=== PATIENT | male | born 1930 | race Caucasian/White ===

== ENCOUNTER → 2016-06-26 | Outpatient (CLI) | payer MEDICARE ==
[~2016-06-26] MED LIST: AMBI5TAB PO; AMLO2.5T PO; ASPI81 PO; ASPI81TA5 PO; ATOR20TA42 PO; CLOP75 PO; CLOP75TA PO; FINA5TAB2 PO; GABA100C4 PO; LIPI20TA PO; LOSA25 PO; LOSA50TA PO; PROS5TAB2 PO; TAB-TAB PO
[2016-06-26 09:16] LABS: HEMATOCRIT 44.6 % (39.0-51.0); MEAN CORPUSCULAR HEMOGLOBIN 29.4 PG (27.0-34.0); MEAN CORPUSCULAR HGB CONC 33.4 % (32.0-36.0); PLATELET COUNT 222 TH/MM3 (150-450); RED BLOOD COUNT 5.07 MIL/MM3 (4.50-5.90); RED CELL DISTRIBUTION WIDTH 13.2 % (11.6-17.2); REVIEW FLAG FINAL; WHITE BLOOD COUNT 5.6 TH/MM3 (4.0-11.0)
[2016-06-26 09:22] LABS: BLOOD, URINE NEG (NEG); GLUCOSE,URINE NEG (NEG); KETONE, URINE NEG (NEG); MUCUS URINE FEW /lpf (OCC); NITRITE,URINE NEG (NEG); PH, URINE 6.5 (5.0-8.5); SQUAMOUS EPITHELIAL CELL URINE <1 /hpf (0-5); URINE COLOR LIGHT-YELLOW (YELLW/STRAW)
[2016-06-26 09:23] LABS: COMMENT (UR) CULT NOT INDICATED; CULTURE IF INDICATED CULT NOT INDICATED
[2016-06-26 09:29] LABS: BICARBONATE 24.6 MEQ/L (21.0-32.0); POTASSIUM 4.7 MEQ/L (3.5-5.1)
== END ==
LOC: PLAB 06:41
PROVIDERS: ATTEND Internal Medicine Nephrology
DX: N18.3 Chronic kidney disease, stage 3 (moderate) (principal); I10 Essential (primary) hypertension; R80.9 Proteinuria, unspecified; E87.5 Hyperkalemia; E55.9 Vitamin D deficiency, unspecified; N25.81 Secondary hyperparathyroidism of renal origin
CPT/HCPCS: 36415; 80069; 81001; 82306; 82570; 83970; 84156; 85027

== ENCOUNTER → 2016-07-24 | Outpatient (CLI) | payer MEDICARE ==
[2016-07-24 09:13] LABS: AUTOMATED NEUTROPHIL # 3.9 TH/MM3 (1.8-7.7); BASOPHIL # 0.1 TH/MM3 (0-0.2); BASOPHIL % 2.1 % (0.0-2.0); EOSINOPHIL # 0.4 TH/MM3 (0-0.4); EOSINOPHIL % 7.6 % (0.0-4.0); HEMATOCRIT 42.4 % (39.0-51.0); HEMO FLAGS DIFF FINAL; LYMPH % 16.1 % (9.0-44.0); MEAN CELL VOLUME 87.3 FL (80.0-100.0); MEAN CORPUSCULAR HEMOGLOBIN 29.7 PG (27.0-34.0); MONO % 9.3 % (0.0-8.0); NEUT % 64.9 % (16.0-70.0); PLATELET COUNT 218 TH/MM3 (150-450); RED BLOOD COUNT 4.86 MIL/MM3 (4.50-5.90); RED CELL DISTRIBUTION WIDTH 13.4 % (11.6-17.2); WHITE BLOOD COUNT 5.9 TH/MM3 (4.0-11.0)
[2016-07-24 10:18] LABS: ALKALINE PHOSPHATASE 110 U/L (45-117); ALT (GPT) 23 U/L (12-78); ANION GAP 8 MEQ/L (5-15); AST (GOT) 23 U/L (15-37); BICARBONATE 24.2 MEQ/L (21.0-32.0); BLOOD UREA NITROGEN 29 MG/DL (7-18); CHLORIDE 110 MEQ/L (98-107); GLOMERULAR FILTRATION RATE 33 ML/MIN (>89); GLUCOSE,FASTING 95 MG/DL (74-99); HDL CHOLESTEROL 43.3 MG/DL (40.0-60.0); LDL CHOLESTEROL 82 MG/DL (0-99); POTASSIUM 4.6 MEQ/L (3.5-5.1); SODIUM (NA) 142 MEQ/L (136-145); TOTAL BILIRUBIN ADULT 0.4 MG/DL (0.2-1.0)
[2016-07-24 11:44] LABS: HEMOGLOBIN A1a 0.8 %; HEMOGLOBIN A1b 1.6 %; HEMOGLOBIN Ao 85.1 %; HEMOGLOBIN LA1C 2.2 %; HEMOGLOBIN P3 4.3 %
== END ==
LOC: PLAB 06:43
PROVIDERS: ATTEND Family Medicine
DX: I25.10 Atherosclerotic heart disease of native coronary artery without angina pectoris (principal); N40.1 Benign prostatic hyperplasia with lower urinary tract symptoms; I12.9 Hypertensive chronic kidney disease with stage 1 through stage 4 chronic kidney disease, or unspecified chronic kidney disease; N18.3 Chronic kidney disease, stage 3 (moderate); H91.90 Unspecified hearing loss, unspecified ear; E78.5 Hyperlipidemia, unspecified; G47.00 Insomnia, unspecified; H81.09 Meniere's disease, unspecified ear
CPT/HCPCS: 36415; 80053; 80061; 83036; 84153; 84443; 85025

== ENCOUNTER → 2016-08-09 | Outpatient (CLI) | payer MEDICARE, OTHER ==
--- NOTE | 2016-08-23 10:13 | RSPPFT ---
DATE OF PROCEDURE: 08/09/16 COMMENTS: Spirometry with FVC of 4.0, FEV1 of 2.9, FEV1/FVC ratio at 72%. A positive but non-significant response to acutely inhaled bronchodilator. Total lung capacity is 106% of predicted. Diffusion capacity is normal. IMPRESSION: 1. Moderate airways obstruction. 2. Positive but non-significant response to acutely inhaled bronchodilator. 3. No evidence of airways restriction. 4. Normal diffusion capacity.
== END ==
LOC: HRSP 07:52
PROVIDERS: ATTEND Family Medicine
DX: R06.00 Dyspnea, unspecified (principal)
CPT/HCPCS: 94060; 94726; 94729

== ENCOUNTER 2016-10-03 11:31 | Day surgery (SDC) | payer MEDICARE ==
[~2016-10-03 11:31] MED LIST changes: -AMLO2.5T PO; -ASPI81TA5 PO; -CLOP75TA PO; -FINA5TAB2 PO; -GABA100C4 PO; -LIPI20TA PO; -LOSA50TA PO; +PROPOFOL 200 MG/20 ML AMP IV ONE
[2016-10-03] MEDS ORDERED: INSULIN HUMAN REGULAR 1,000 UNITS/10 ML VIAL SQ PRN (12:00)
[2016-10-03] MEDS ORDERED: SODIUM CHLORID 0.9% 500 ML IV PRN (12:00)
[2016-10-03] MEDS ORDERED: POVIDONE IODINE 5% (ANTISEPSIS KIT) 4 APPLICATIONS EACH NARE PRN (12:00)
[2016-10-03] MEDS ORDERED: METOPROLOL TARTRATE 25 MG TAB PO PRN (12:00)
[2016-10-03] MEDS ORDERED: LACTATED RINGER'S 1000 ML IV PRN (12:00)
[2016-10-03] MEDS ORDERED: CHLORHEXIDINE GLUCONATE 2 % 1 PACK (2 CLOTHS) TOPICAL PRN (12:00)
[2016-10-03] MEDS ORDERED: GABA100C4 PO (12:16)
[2016-10-03] MEDS ORDERED: CLOP75TA PO (12:16)
[2016-10-03] MEDS ORDERED: LIPI20TA PO (12:16)
[2016-10-03] MEDS ORDERED: FINA5TAB2 PO (12:16)
[2016-10-03] MEDS ORDERED: LOSA50TA PO (12:16)
[2016-10-03] MEDS ORDERED: AMLO2.5T PO (12:16)
[2016-10-03] MEDS ORDERED: ASPI81TA5 PO (12:16)
--- NOTE | 2016-10-03 14:37 | PD.CARD ---
Cardiology Procedure Note Procedure Name: ZAYDA Procedure Date: October 03, 2016 Procedure Note: ZAYDA SHOWED 3 TO 4+, MITRAL REGURGITATION Claudio Isabel MD October 03, 2016 14:36
--- NOTE | 2016-10-04 05:58 | CF ---
cc: CLAUDIO ISABEL M.D. DATE PROCEDURE PERFORMED Transesophageal echo. INDICATION Mitral regurgitation. CONSENT A full, informed consent was obtained prior to the procedure. The risks of , bleeding, perforation, aspiration, foreseen and unforeseen complications were reviewed. The patient fully appeared to understand the risks. PROCEDURE The patient was sterilely prepped and draped in the usual manner. A full ZAYDA was performed. At the end of the procedure, the ZAYDA probe was removed and the patient allowed to wake up from sedation. The patient was sedated by the Anesthesia Department. FINDINGS The interatrial septum was intact. The interventricular septum was intact. The mitral valve showed evidence of mitral valve prolapse with parts of the mitral valve prolapsing. There was evidence of moderate to severe (3-4+) eccentric mitral regurgitation up to the pulmonary veins. There was evidence of mild tricuspid regurgitation. The aortic valve moved normally. LV function was normal. The aorta was visualized to 40 cm. CONCLUSIONS 1. Significant mitral valve regurgitation, 3-4+, which could account for the patient's symptoms. 2. Potentially a repairable valve. Claudio Isabel MD, CP,[facility] /2:30 PM /5:47 AM
--- NOTE | 2016-10-04 18:28 | EKG ---
Date Performed: 10/03/2016 Time Performed: 12:08:46 PTAGE: 85 years EKG: Sinus rhythm with borderline 1st degree A-V block. Inferior infarct - age undetermined Abnormal ECG Compared to p rior tracing no significant change PREVIOUS TRACING : 12/03/2015 07.23 DOCTOR: Shivam Mckenna Interpretating Date/Time 10/04/2016 18:25:23
== END 2016-10-03 15:18 | disposition home or self-care (01) ==
LOC: HDOC 11:31 → HDIC 11:31 → HDOC 15:18
PROVIDERS: ATTEND Internal Medicine Cardiovascular Disease
DX: I34.0 Nonrheumatic mitral (valve) insufficiency (principal)
CPT/HCPCS: 93005; 93312; 93320; 93325

== ENCOUNTER → 2016-12-26 | Outpatient (CLI) | payer MEDICARE ==
[~2016-12-26] MED LIST changes: -AMBI5TAB PO; +AMLO2.5T PO; -ASPI81 PO; +ASPI81TA5 PO; -ATOR20TA42 PO; -CLOP75 PO; +CLOP75TA PO; +FINA5TAB2 PO; +GABA100C4 PO; +LIPI20TA PO; -LOSA25 PO; +LOSA50TA PO; -PROPOFOL 200 MG/20 ML AMP IV ONE; -PROS5TAB2 PO; -TAB-TAB PO
[2016-12-26 09:13] LABS: AUTOMATED NEUTROPHIL # 3.8 TH/MM3 (1.8-7.7); BASOPHIL % 0.9 % (0.0-2.0); EOSINOPHIL # 0.2 TH/MM3 (0-0.4); EOSINOPHIL % 4.8 % (0.0-4.0); HEMATOCRIT 43.8 % (39.0-51.0); HEMO FLAGS DIFF FINAL; LYMPH % 15.4 % (9.0-44.0); LYMPHOCYTE # 0.8 TH/MM3 (1.0-4.8); MEAN CELL VOLUME 90.9 FL (80.0-100.0); MEAN CORPUSCULAR HEMOGLOBIN 29.8 PG (27.0-34.0); MEAN CORPUSCULAR HGB CONC 32.8 % (32.0-36.0); NEUT % 73.9 % (16.0-70.0); PLATELET COUNT 214 TH/MM3 (150-450); RED BLOOD COUNT 4.82 MIL/MM3 (4.50-5.90); RED CELL DISTRIBUTION WIDTH 13.6 % (11.6-17.2); WHITE BLOOD COUNT 5.1 TH/MM3 (4.0-11.0)
[2016-12-26 09:27] LABS: BLOOD, URINE NEG (NEG); GLUCOSE,URINE NEG (NEG); HYALINE CAST, URINE 2 /lpf (RARE); KETONE, URINE NEG (NEG); NITRITE,URINE NEG (NEG); SQUAMOUS EPITHELIAL CELL URINE <1 /hpf (0-5); URINE COLOR LIGHT-YELLOW (YELLW/STRAW)
[2016-12-26 09:28] LABS: COMMENT (UR) CULT NOT INDICATED; CULTURE IF INDICATED CULT NOT INDICATED
[2016-12-26 09:47] LABS: POTASSIUM 4.5 MEQ/L (3.5-5.1)
== END ==
LOC: PLAB 06:40
PROVIDERS: ATTEND Internal Medicine Nephrology
DX: E55.9 Vitamin D deficiency, unspecified (principal); N18.3 Chronic kidney disease, stage 3 (moderate)
CPT/HCPCS: 36415; 80069; 81001; 82306; 82570; 83970; 84156; 85025

== ENCOUNTER → 2017-02-15 | Outpatient (CLI) | payer MEDICARE ==
[2017-02-15 09:29] LABS: AUTOMATED NEUTROPHIL # 4.5 TH/MM3 (1.8-7.7); BASOPHIL # 0.1 TH/MM3 (0-0.2); BASOPHIL % 1.3 % (0.0-2.0); EOSINOPHIL # 0.4 TH/MM3 (0-0.4); EOSINOPHIL % 5.8 % (0.0-4.0); HEMATOCRIT 43.9 % (39.0-51.0); HEMO FLAGS DIFF FINAL; LYMPH % 17.4 % (9.0-44.0); LYMPHOCYTE # 1.2 TH/MM3 (1.0-4.8); MEAN CELL VOLUME 90.8 FL (80.0-100.0); MEAN CORPUSCULAR HEMOGLOBIN 30.3 PG (27.0-34.0); MEAN CORPUSCULAR HGB CONC 33.4 % (32.0-36.0); MONO % 8.1 % (0.0-8.0); NEUT % 67.4 % (16.0-70.0); PLATELET COUNT 225 TH/MM3 (150-450); RED BLOOD COUNT 4.84 MIL/MM3 (4.50-5.90); RED CELL DISTRIBUTION WIDTH 13.3 % (11.6-17.2); WHITE BLOOD COUNT 6.7 TH/MM3 (4.0-11.0)
[2017-02-15 09:52] LABS: ANION GAP 7 MEQ/L (5-15); AST (GOT) 21 U/L (15-37); BICARBONATE 24.7 MEQ/L (21.0-32.0); BLOOD UREA NITROGEN 36 MG/DL (7-18); CHLORIDE 108 MEQ/L (98-107); GLOMERULAR FILTRATION RATE 32 ML/MIN (>89); POTASSIUM 5.2 MEQ/L (3.5-5.1); SODIUM (NA) 140 MEQ/L (136-145)
[2017-02-15 09:53] LABS: GLUCOSE,FASTING 93 MG/DL (74-99)
[2017-02-15 10:07] LABS: ALKALINE PHOSPHATASE 91 U/L (45-117); ALT (GPT) 24 U/L (12-78); HDL CHOLESTEROL 43.9 MG/DL (40.0-60.0); LDL CHOLESTEROL 72 MG/DL (0-99); TOTAL BILIRUBIN ADULT 0.5 MG/DL (0.2-1.0)
== END ==
LOC: PLAB 06:46
PROVIDERS: ATTEND Family Medicine
DX: I12.9 Hypertensive chronic kidney disease with stage 1 through stage 4 chronic kidney disease, or unspecified chronic kidney disease (principal); N18.3 Chronic kidney disease, stage 3 (moderate); E78.5 Hyperlipidemia, unspecified; R53.83 Other fatigue; G62.9 Polyneuropathy, unspecified
CPT/HCPCS: 36415; 80053; 80061; 84443; 85025

== ENCOUNTER → 2017-04-15 | Outpatient (CLI) | payer MEDICARE ==
[~2017-04-15] MED LIST changes: -ASPI81TA5 PO; +ECASA81 PO
[2017-04-15 10:07] LABS: BICARBONATE 26.6 MEQ/L (21.0-32.0); POTASSIUM 4.2 MEQ/L (3.5-5.1)
== END ==
LOC: PLAB 06:37
PROVIDERS: ATTEND Internal Medicine Cardiovascular Disease
DX: I42.9 Cardiomyopathy, unspecified (principal); I48.91 Unspecified atrial fibrillation; I34.0 Nonrheumatic mitral (valve) insufficiency; I10 Essential (primary) hypertension
CPT/HCPCS: 36415; 80048

== ENCOUNTER → 2017-05-09 | Outpatient (CLI) | payer MEDICARE ==
[2017-05-09 09:30] LABS: AUTOMATED NEUTROPHIL # 5.3 TH/MM3 (1.8-7.7); BASOPHIL # 0.2 TH/MM3 (0-0.2); EOSINOPHIL # 1.1 TH/MM3 (0-0.4); EOSINOPHIL % 12.6 % (0.0-4.0); HEMATOCRIT 33.9 % (39.0-51.0); HEMO FLAGS DIFF FINAL; LYMPH % 12.1 % (9.0-44.0); MEAN CELL VOLUME 77.8 FL (80.0-100.0); MEAN CORPUSCULAR HEMOGLOBIN 24.2 PG (27.0-34.0); MEAN CORPUSCULAR HGB CONC 31.1 % (32.0-36.0); MONO % 10.3 % (0.0-8.0); PLATELET COUNT 327 TH/MM3 (150-450); RED BLOOD COUNT 4.36 MIL/MM3 (4.50-5.90); RED CELL DISTRIBUTION WIDTH 17.3 % (11.6-17.2); WHITE BLOOD COUNT 8.3 TH/MM3 (4.0-11.0)
[2017-05-09 09:51] LABS: ANION GAP 8 MEQ/L (5-15); BICARBONATE 23.3 MEQ/L (21.0-32.0); BLOOD UREA NITROGEN 49 MG/DL (7-18); CHLORIDE 108 MEQ/L (98-107); GLOMERULAR FILTRATION RATE 26 ML/MIN (>89); GLUCOSE,FASTING 93 MG/DL (74-99); POTASSIUM 4.8 MEQ/L (3.5-5.1); SODIUM (NA) 139 MEQ/L (136-145)
[2017-05-09 09:56] LABS: FERRITIN 27 NG/ML (26-388); TRANSFERRIN IRON PROFILE 285 MG/DL (200-360)
[2017-05-09 10:00] LABS: BLOOD, URINE NEG (NEG); COMMENT (UR) CULT NOT INDICATED; CULTURE IF INDICATED CULT NOT INDICATED; GLUCOSE,URINE NEG (NEG); KETONE, URINE NEG (NEG); NITRITE,URINE NEG (NEG); PH, URINE 6.5 (5.0-8.5); SQUAMOUS EPITHELIAL CELL URINE <1 /hpf (0-5); URINE COLOR LIGHT-YELLOW (YELLW/STRAW)
== END ==
LOC: PLAB 06:47
PROVIDERS: ATTEND Physician Assistant
DX: E55.9 Vitamin D deficiency, unspecified (principal); N18.3 Chronic kidney disease, stage 3 (moderate); D63.1 Anemia in chronic kidney disease
CPT/HCPCS: 36415; 80069; 81001; 82306; 82570; 82728; 83540; 83550; 83970; 84156; 85025

== ENCOUNTER 2017-05-31 09:16 | Observation (INO) | payer MEDICARE ==
[~2017-05-31] VITALS: Ht 190.5 cm; Wt 70.0 kg
[2017-05-31 09:20] VITALS: BP 130/71; PULSE 90; RESP 18; TEMP 97.5; O2SAT 98
[2017-05-31 09:28] VITALS: BP 130/71; PULSE 79; RESP 18; TEMP 97.5; O2SAT 98
[2017-05-31] MEDS ORDERED: SODIUM CHLORIDE 0.9% FLUSH 10 ML FLUSH IVF PRN (10:00)
[2017-05-31 10:20] VITALS: O2SAT 98
--- NOTE | 2017-05-31 10:26 | RADRPT ---
EXAM DATE/TIME: 05/31/2017 10:04 [facility] COMPARISON: CHEST SINGLE AP, November 26, 2015, 8:05. INDICATIONS : Syncope. MEDICAL HISTORY : Hypertension. SURGICAL HISTORY : Mitral valve replaced. ENCOUNTER: Initial ACUITY: 1 day PAIN SCORE: 0/10 LOCATION: Bilateral chest FINDINGS: A single view of the chest demonstrates the lungs to be symmetrically aerated without evidence of mas s, infiltrate or effusion. The cardiomediastinal contours are unremarkable. Osseous structures are intact. The patient is status post median sternotomy. There are overlying electrocardiogram leads. CONCLUSION: No acute disease. Taiwo Serrato MD on May 31, 2017 at 10:24 Board Certified Radiologist. This report was verified electronically.
[2017-05-31 10:35] LABS: AUTOMATED NEUTROPHIL # 5.8 TH/MM3 (1.8-7.7); BASOPHIL # 0.1 TH/MM3 (0-0.2); BASOPHIL % 1.3 % (0.0-2.0); EOSINOPHIL # 0.5 TH/MM3 (0-0.4); EOSINOPHIL % 6.3 % (0.0-4.0); HEMATOCRIT 35.6 % (39.0-51.0); LYMPH % 8.7 % (9.0-44.0); LYMPHOCYTE # 0.7 TH/MM3 (1.0-4.8); MEAN CELL VOLUME 77.8 FL (80.0-100.0); MEAN CORPUSCULAR HGB CONC 30.9 % (32.0-36.0); MEAN PLATELET VOLUME 8.1 FL (7.0-11.0); MONO % 8.3 % (0.0-8.0); MONOCYTE # 0.6 TH/MM3 (0-0.9); NEUT % 75.4 % (16.0-70.0); PLATELET COUNT 273 TH/MM3 (150-450); RED BLOOD COUNT 4.58 MIL/MM3 (4.50-5.90); RED CELL DISTRIBUTION WIDTH 20.5 % (11.6-17.2); WHITE BLOOD COUNT 7.7 TH/MM3 (4.0-11.0)
[2017-05-31 10:43] LABS: INTERNATIONAL NORMALIZED RATIO 1.8 RATIO; PROTHROMBIN TIME - PATIENT 18.1 SEC (9.8-11.6)
[2017-05-31] MEDS ORDERED: CARV3.12 PO (10:47)
[2017-05-31] MEDS ORDERED: ISOS30TA3 PO (10:47)
[2017-05-31] MEDS ORDERED: WARF-58 PO (10:47)
[2017-05-31] MEDS ORDERED: GABA300C5 PO (10:47)
[2017-05-31 10:53] LABS: ALBUMIN 2.5 GM/DL (3.4-5.0); ALT (GPT) 19 U/L (12-78); AST (GOT) 21 U/L (15-37); BICARBONATE 21.6 MEQ/L (21.0-32.0); BLOOD UREA NITROGEN 46 MG/DL (7-18); CALCIUM 8.3 MG/DL (8.5-10.1); CHLORIDE 107 MEQ/L (98-107); CREATININE 2.11 MG/DL (0.60-1.30); GLOMERULAR FILTRATION RATE 30 ML/MIN (>89); GLUCOSE,RANDOM 144 MG/DL (74-106); MAGNESIUM 2.2 MG/DL (1.5-2.5); SODIUM (NA) 138 MEQ/L (136-145)
[2017-05-31 10:57] LABS: ALKALINE PHOSPHATASE 116 U/L (45-117); TOTAL BILIRUBIN ADULT 0.5 MG/DL (0.2-1.0); TROPONIN I 0.03 NG/ML (0.02-0.05)
--- NOTE | 2017-05-31 12:53 | PD ---
HPI Chief Complaint: Syncope/Near-Syncope Time Seen by Provider: 09:27 Travel History International Travel<30 days: No Contact w/Intl Traveler<30days: No Traveled to known affect area: No History of Present Illness HPI 86-year-old male arrives to the ER after a syncope event this morning. The reports the patient lost consciousness for 5 minutes. Just prior the patient had participated with physical therapy. Patient lost control of bladder function with hypotensive BP measurements on scene according to EMS. They also reported patient's systolic blood pressure drop significantly with the orthostatics performed on scene. In the ER the patient reports feeling much better. He had no chest pain shortness of breath nausea vomiting or fever. He reports compliance with coumadin /2 2/2 valve replacement. PFSH Past Medical History Hx Anticoagulant Therapy: Yes (WARFARIN) Arthritis: Yes Asthma: No Autoimmune Disease: No Blood Disorders: No Anxiety: No Depression: No Heart Rhythm Problems: No Cancer: Yes (BASAL CELL CA OF NECK) Cardiac Catheterization: Yes Cardiovascular Problems: Yes (CABG, MV REPLACED) High Cholesterol: Yes Chemotherapy: No Chest Pain: No Congestive Heart Failure: No COPD: No Cerebrovascular Accident: No Coronary Artery Disease: Yes Diabetes: No Diminished Hearing: Yes Endocrine: No Gastrointestinal Disorders: No Glaucoma: Yes (SUSPICIOUS PRIOR TO LENS IMPLANTS PLACED) Genitourinary: Yes (KIDNEY DISEASE, BPH) Headaches: No Hypertension: Yes Immune Disorder: No Kidney Stones: No Musculoskeletal: Yes (RIGHT KNEE) Neurologic: Yes (NEUROPATHY) Psychiatric: No Reproductive: No Respiratory: No Immunizations Current: Yes Migraines: No Myocardial Infarction: Yes Radiation Therapy: No Renal Failure: Yes (STAGE 3 RENAL INSUFFICIENCY) Seizures: No Sickle Cell Disease: No Sleep Apnea: No Thyroid Disease: No Tetanus Vaccination: Unknown Influenza Vaccination: Yes ?: Not Past Surgical History Abdominal Surgery: No AICD: No Cardiac Surgery: No Coronary Stent: Yes Ear Surgery: Yes (TUBE PLACE LEFT EAR 2000/REMOVED) Endocrine Surgery: No Eye Surgery: Yes (BILAT CATARACT WITH NIURKA INMPLANTS 2005) Genitourinary Surgery: No Gynecologic Surgery: No Insulin Pump: No Joint Replacement: No Oral Surgery: No Pacemaker: No Thoracic Surgery: No Other Surgery: Yes (MULTIPLE SKIN CANCER REMOVALS ) Social History Alcohol Use: Yes (OCCASIOJNAL BEER) Tobacco Use: No Substance Use: No Allergies-Medications (Allergen,Severity, Reaction): Coded Allergies: duloxetine (Unverified Allergy, Severe, Confusion, 01/15/17) Reported Meds & Prescriptions Reported Meds & Active Scripts Active Reported Gabapentin 300 Mg Cap 300 Mg PO HS Warfarin 3 Mg Tab 3 Mg PO DAILY Isosorbide Mononitrate ER (Isosorbide Mononitrate) 30 Mg Melonie 30 Mg PO DAILY Carvedilol 3.125 Mg Tab 3.125 Mg PO BID Losartan (Losartan Potassium) 50 Mg Tab 50 Mg PO BID Gabapentin 100 Mg Cap 100 Mg PO AC BREAKFAST Finasteride 5 Mg Tab 5 Mg PO DAILY Do not crush. Lipitor (Atorvastatin Calcium) 20 Mg Tab 20 Mg PO DAILY Aspirin DR (Aspirin) 81 Mg Tabdr 81 Mg PO DAILY Review of Systems Except as stated in HPI: all other systems reviewed are Neg Physical Exam Narrative GENERAL: A-year-old male well-nourished well-developed no acute distress SKIN: Focused skin assessment warm/dry. HEAD: Atraumatic. Normocephalic. EYES: Pupils equal and round. No scleral icterus. No injection or drainage. ENT: No nasal bleeding or discharge. Mucous membranes pink and moist. NECK: Trachea midline. No JVD. CARDIOVASCULAR: Regular rate and rhythm. No murmur appreciated. RESPIRATORY: No accessory muscle use. Clear to auscultation. Breath sounds equal bilaterally. GASTROINTESTINAL: Abdomen soft, non-tender, nondistended. Hepatic and splenic margins not palpable. MUSCULOSKELETAL: No obvious deformities. No clubbing. No cyanosis. No edema. NEUROLOGICAL: Awake and alert. No obvious cranial nerve deficits. Motor grossly within normal limits. Normal speech. PSYCHIATRIC: Appropriate mood and affect; insight and judgment normal. Data Data Last Documented VS Vital Signs Date Time Temp Pulse Resp B/P (MAP) Pulse Ox O2 Delivery O2 Flow Rate FiO2 05/31/17 10:20 98 Room Air 05/31/17 09:28 78 18 05/31/17 09:28 97.5 Vital signs reviewed Orders Orders Electrocardiogram (05/31/17 09:57) Complete Blood Count With Diff (05/31/17 09:57) Comprehensive Metabolic Panel (05/31/17 09:57) Magnesium (Mg) (05/31/17 09:57) B-Type Natriuretic Peptide (05/31/17 09:57) Ckmb (Isoenzyme) Profile (05/31/17 09:57) Troponin I (05/31/17 09:57) Act Partial Throm Time (Ptt) (05/31/17 09:57) Prothrombin Time / Inr (Pt) (05/31/17 09:57) Chest, Single Ap (05/31/17 09:57) Blood Glucose (05/31/17 09:57) Ecg Monitoring (05/31/17 09:57) Iv Access Insert/Monitor (05/31/17 09:57) Oximetry (05/31/17 09:57) Sodium Chloride 0.9% Flush (Ns Flush) (05/31/17 10:00) Ventilation & Perfusion Scan (05/31/17 ) Admit Order (Ed Use Only) (05/31/17 ) Upholstery Technician / Telemetry PETER.Q8H (05/31/17 13:09) Vital Signs (Adult) Q4H (05/31/17 13:09) Diet Npo (05/31/17 Lunch) Activity Bed Rest (05/31/17 13:09) Labs Laboratory Tests Test 05/31/17 10:12 White Blood Count 7.7 TH/MM3 Red Blood Count 4.58 MIL/MM3 Hemoglobin 11.0 GM/DL Hematocrit 35.6 % Mean Corpuscular Volume 77.8 FL Mean Corpuscular Hemoglobin 24.0 PG Mean Corpuscular Hemoglobin Concent 30.9 % Red Cell Distribution Width 20.5 % Platelet Count 273 TH/MM3 Mean Platelet Volume 8.1 FL Neutrophils (%) (Auto) 75.4 % Lymphocytes (%) (Auto) 8.7 % Monocytes (%) (Auto) 8.3 % Eosinophils (%) (Auto) 6.3 % Basophils (%) (Auto) 1.3 % Neutrophils # (Auto) 5.8 TH/MM3 Lymphocytes # (Auto) 0.7 TH/MM3 Monocytes # (Auto) 0.6 TH/MM3 Eosinophils # (Auto) 0.5 TH/MM3 Basophils # (Auto) 0.1 TH/MM3 CBC Comment DIFF FINAL Differential Comment Prothrombin Time 18.1 SEC Prothromb Time International Ratio 1.8 RATIO Activated Partial Thromboplast Time 30.3 SEC Blood Urea Nitrogen 46 MG/DL Creatinine 2.11 MG/DL Random Glucose 144 MG/DL Total Protein 6.0 GM/DL Albumin 2.5 GM/DL Calcium Level 8.3 MG/DL Magnesium Level 2.2 MG/DL Alkaline Phosphatase 116 U/L Aspartate Amino Transf (AST/SGOT) 21 U/L Alanine Aminotransferase (ALT/SGPT) 19 U/L Total Bilirubin 0.5 MG/DL Sodium Level 138 MEQ/L Potassium Level 4.7 MEQ/L Chloride Level 107 MEQ/L Carbon Dioxide Level 21.6 MEQ/L Anion Gap 9 MEQ/L Estimat Glomerular Filtration Rate 30 ML/MIN Total Creatine Kinase 59 U/L Troponin I 0.03 NG/ML B-Type Natriuretic Peptide 887 PG/ML MDM Medical Decision Making Medical Screen Exam Complete: Yes Emergency Medical Condition: Yes Medical Record Reviewed: Yes Differential Diagnosis PE, CHF, metabolic disarray Narrative Course CBC & BMP Diagram 05/31/17 10:12 Total Protein 6.0 L, Albumin 2.5 L, Calcium Level 8.3 L, Magnesium Level 2.2, Alkaline Phosphatase 116, Aspartate Amino Transf (AST/SGOT) 21, Alanine Aminotransferase (ALT/SGPT) 19, Total Bilirubin 0.5 The BNP is 887 Troponin is 0.03 EKG shows a sinus rhythm with a rate of 79, nerves first-degree AV block, no ventricular heart strain INR is 1.8 Pt will be kept here for monitoring for a VQ scan and for diuresis. [facility] is hemodynamically [facility]w Dr Wesley Diagnosis Primary Impression: Syncope and collapse Additional Impressions: Elevated brain natriuretic peptide (BNP) level Urinary incontinence Qualified Codes: R32 - Unspecified urinary incontinence Admitting Information Admitting Physician Requests: Observation Fredis Paris MD May 31, 2017 12:53
--- NOTE | 2017-05-31 14:21 | EKG ---
Date Performed: 05/31/2017 Time Performed: 09:28:23 PTAGE: 86 years EKG: Sinus rhythm WITH FIRST DEGREE AV BLOCK SEPTAL MYOCARDIAL INFARCTION MODERATE T-WAVE ABNORMALITY, CONSIDER LATERA L ISCHEMIA ABNORMAL ECG PREVIOUS TRACING 10/03/16 Lateral changes are new, consider ischemia. DOCTOR: Jack Luis Interpretating Date/Time 05/31/2017 14:21:14
[2017-05-31] MEDS: SODIUM CHLOR 0.9% 1000 ML INJ 1,000 ML IV SCH (14:37)
[2017-05-31] MEDS ORDERED: SODIUM CHLORIDE 0.9% FLUSH 10 ML FLUSH IV FLUSH PRN (14:45)
[2017-05-31] MEDS ORDERED: MAGNESIUM HYDROXIDE SUSP 30 ML CUP PO PRN (14:45)
[2017-05-31] MEDS ORDERED: NALOXONE HCL 0.4 MG/ML AMP IV PUSH PRN (14:45)
[2017-05-31] MEDS ORDERED: ONDANSETRON HCL 4 MG/2 ML VIAL IVP PRN (14:45)
--- NOTE | 2017-05-31 14:46 | RADRPT ---
EXAM DATE/TIME: 05/31/2017 13:54 [facility] COMPARISON: CHEST SINGLE AP, May 31, 2017, 10:04. INDICATIONS : Dyspnea. DOSE: 8.1 mCi Tc99m MAA IV 2.7 mCi Tc99m DTPA aerosol MEDICAL HISTORY : Hypertension. Myocardial infarction. Renal insufficiency, chronic. SURGICAL HISTORY : CABG Coronary artery stent. ENCOUNTER: Initial ACUITY: 1 day PAIN SCALE: 0/10 LOCATION: Chest. TECHNIQUE: Following five minutes of tidal breathing of DTPA aerosol, planar images of the lungs were performed in eight projections. The patient was then injected with MAA, and eight-view perfusion scan was perf ormed. FINDINGS: There is a heterogeneous pattern of aerosol delivery to both lungs, with a lesser degree of ventilati on to the upper lobes than lower lobes. No focal ventilatory defects are seen. The perfusion lung scan demonstrates a homogenous pattern of uptake in both lungs. No segmental or s ubsegmental defects are seen. Chest x-ray demonstrates the lungs to be clear. CONCLUSION: Low probability pulmonary embolism. Yadiel Machuca MD on May 31, 2017 at 14:44 Board Certified Radiologist. This report was verified electronically.
--- NOTE | 2017-05-31 16:01 | HHI.HP ---
[facility] Service [facility] Primary Care Physician Олег Bray MD Admission Diagnosis Syncope; CHF Diagnoses: Chief Complaint: syncope Travel History International Travel<30 Days: No Contact w/Intl Traveler <30 Da: No Traveled to Known Affected Are: No History of Present Illness 86-year-old male with history of HTN, HLD, CAD s/p CABG, severe MR s/p bovine mitral valve replacement, anticoagulated on Coumadin, CKD stage III, BPH, Mni re's disease, neuropathy, presents after an acute syncopal episode earlier today. The patient reports that he recently had CABG with bypass of LAD and mitral valve replacement done at [facility] on 03/01/17. He states he has been doing fairly well except feeling fatigued and winded at times. A few weeks ago he was told he was iron deficient, started on iron supplementation by his brick burner head, now having black stools. He has been performing physical therapy with home health care. Today his physical therapist visited him around 8 AM and started his session. Around 8:20 AM the patient was standing during an exercise when he had profuse diaphoresis, started to feel lightheaded, sat down in a chair, and that is last thing he remembers. The was in another room when the therapist yelled to call 911. The states that the patient was out for at least five minutes. He had bladder incontinence and secretions from the mouth. The next thing the patient remembers is [facility] arriving. He states they did check his blood pressure sitting down and standing up, and he remembers his standing systolic blood pressure in the 70s. The reports he was AAO 4 upon his awakening. Denies noticing any facial droop, slurred speech, or unilateral weakness. The patient denies ever having any palpitations or chest pain. He states he is "winded" and short of breath at baseline even prior to surgery. He denies any recent fevers/chills, congestion, cough, nausea/vomiting, diarrhea, or urinary complaints. He denies any recent changes to medications other than the addition of iron supplementation 2 weeks ago. The patient's hydraulic strainer operator is Dr. Isabel. The patient did just complete a 3 week event monitor to evaluate for afib however he has not yet received the results. The patient was told that he had an episode of afib after his surgery, otherwise denies any other history of arrhythmia. The patient has no other medical complaints at this time. Currently the patient feels better, denies any lightheadedness, but does feel fatigued. He wants to go home as soon as possible. Review of Systems Except as stated in HPI: all other systems reviewed are Neg Past Family Social History Past Medical History HTN HLD CAD s/p CABG severe MR s/p bovine mitral valve replacement anticoagulated on Coumadin CKD stage III BPH Mnire's disease peripheral neuropathy arthritis basal cell carcinoma s/p multiple resections Past Surgical History Cardiac catheterizations TEEs CABG x1 vessel (LAD) Bovine Mitral valve replacement Tympanostomy placement and removal Bilateral cataract removal and lens implant Reported Medications Gabapentin 300 Mg Cap 300 Mg PO HS Warfarin 3 Mg Tab 3 Mg PO DAILY Isosorbide Mononitrate ER (Isosorbide Mononitrate) 30 Mg Melonie 30 Mg PO DAILY Carvedilol 3.125 Mg Tab 3.125 Mg PO BID Losartan (Losartan Potassium) 50 Mg Tab 50 Mg PO BID Gabapentin 100 Mg Cap 100 Mg PO AC BREAKFAST Finasteride 5 Mg Tab 5 Mg PO DAILY Do not crush. Lipitor (Atorvastatin Calcium) 20 Mg Tab 20 Mg PO DAILY Aspirin DR (Aspirin) 81 Mg Tabdr 81 Mg PO DAILY Allergies: Coded Allergies: duloxetine (Unverified Allergy, Severe, Confusion, 01/15/17) Active Ordered Medications Current Medications Medications (Trade) Dose Ordered Sig/Maliha Route Start Time Stop Time Status Last Admin Sodium Chloride 1,000 ml @ 83 mls/hr Q12H3M IV 05/31/17 14:37 (NS Flush) 2 ml UNSCH PRN IV FLUSH 05/31/17 14:45 (NS Flush) 2 ml BID IV FLUSH 05/31/17 21:00 (Zofran Inj) 4 mg Q6H PRN IVP 05/31/17 14:45 (Narcan Inj) 0.4 mg UNSCH PRN IV PUSH 05/31/17 14:45 (Milk Of Magnesia Liq) 30 ml Q12H PRN PO 05/31/17 14:45 Family History Mother with possible heart problems later in age, age 92 Father around age 65, unknown medical history, heavy drinker Denies any significant family history of cancer, stroke, or diabetes Social History Remote cigar and pipe use, quit 50+ years ago Rare alcohol use, occasional beer Denies any illicit drug use Physical Exam Vital Signs Vital Signs Date Time Temp Pulse Resp B/P (MAP) Pulse Ox O2 Delivery O2 Flow Rate FiO2 05/31/17 14:12 05/31/17 10:20 98 Room Air 05/31/17 09:28 78 18 98 Room Air 05/31/17 09:28 97.5 79 18 130/71 (90) 98 Room Air 05/31/17 09:20 97.5 90 18 130/71 (90) 98 Physical Exam GENERAL: Well-nourished, well-developed elderly male patient in [facility]. SKIN: Warm and dry. No rash. HEAD: Normocephalic. Atraumatic. EYES: Pupils equal and round. No scleral icterus. No injection or drainage. ENT: No nasal bleeding or discharge. Mucous membranes pink and moist. Right ear with hearing aid. NECK: Supple. Trachea midline. CARDIOVASCULAR: Regular rate and rhythm. S1, S2 noted. No murmur appreciated. Midline sternotomy scar well-healing. RESPIRATORY: No accessory muscle use. Clear to auscultation. Breath sounds equal bilaterally. GASTROINTESTINAL: Abdomen soft, non-tender, nondistended. Normoactive bowel sounds x4. MUSCULOSKELETAL: No obvious deformities. Extremities without clubbing, cyanosis , or edema. NEUROLOGICAL: Awake and alert. No obvious cranial nerve deficits. Motor grossly within normal limits. 5/5 muscle strength in bilateral upper and lower extremities. Normal speech. PSYCHIATRIC: Appropriate mood and affect; insight and judgment normal. Laboratory Laboratory Tests Test 05/31/17 10:12 White Blood Count 7.7 Red Blood Count 4.58 Hemoglobin 11.0 Hematocrit 35.6 Mean Corpuscular Volume 77.8 Mean Corpuscular Hemoglobin 24.0 Mean Corpuscular Hemoglobin Concent 30.9 Red Cell Distribution Width 20.5 Platelet Count 273 Mean Platelet Volume 8.1 Neutrophils (%) (Auto) 75.4 Lymphocytes (%) (Auto) 8.7 Monocytes (%) (Auto) 8.3 Eosinophils (%) (Auto) 6.3 Basophils (%) (Auto) 1.3 Neutrophils # (Auto) 5.8 Lymphocytes # (Auto) 0.7 Monocytes # (Auto) 0.6 Eosinophils # (Auto) 0.5 Basophils # (Auto) 0.1 CBC Comment DIFF FINAL Differential Comment Prothrombin Time 18.1 Prothromb Time International Ratio 1.8 Activated Partial Thromboplast Time 30.3 Blood Urea Nitrogen 46 Creatinine 2.11 Random Glucose 144 Total Protein 6.0 Albumin 2.5 Calcium Level 8.3 Magnesium Level 2.2 Alkaline Phosphatase 116 Aspartate Amino Transf (AST/SGOT) 21 Alanine Aminotransferase (ALT/SGPT) 19 Total Bilirubin 0.5 Sodium Level 138 Potassium Level 4.7 Chloride Level 107 Carbon Dioxide Level 21.6 Anion Gap 9 Estimat Glomerular Filtration Rate 30 Total Creatine Kinase 59 Troponin I 0.03 B-Type Natriuretic Peptide 887 Result Diagram: 05/31/17 1012 05/31/17 1012 Imaging Last Impressions Chest X-Ray 05/31/17 0957 Signed Impressions: Service Date/Time: Wednesday, May 31, 2017 10:04 - CONCLUSION: No acute disease. Taiwo Serrato MD Lung Scan-V Nuclear Medicine 05/31/17 0000 Signed Impressions: Service Date/Time: Wednesday, May 31, 2017 13:54 - CONCLUSION: Low probability pulmonary embolism. Yadiel Machuca MD Caplaceyi VTE Risk Assessment Caprini VTE Risk Assessment: Mod/High Risk (score >= 2) Caprini Risk Assessment Model Point Value = 1 Point Value = 2 Point Value = 3 Point Value = 5 Age 41-60 Minor surgery BMI > 25 kg/m2 Swollen legs Varicose veins or History of unexplained or recurrent spontaneous Oral contraceptives or hormone replacement Sepsis (< 1 month) Serious lung disease, including pneumonia (< 1 month) Abnormal pulmonary function Acute myocardial infarction Congestive heart failure (< 1 month) History of inflammatory bowel disease Medical patient at bed rest Age 61-74 Arthroscopic surgery Major open surgery (> 45 min) Laparoscopic surgery (> 45 min) Malignancy Confined to bed (> 72 hours) Immobilizing plaster cast Central venous access Age >= 75 History of VTE Family history of VTE Factor V Leiden Prothrombin [id number] Lupus anticoagulant Anticardiolipin antibodies Elevated serum homocysteine Heparin-induced thrombocytopenia Other congenital or acquired thrombophilia Stroke (< 1 month) Elective arthroplasty Hip, pelvis, or leg fracture Acute spinal cord injury (< 1 month) Prophylaxis Regimen Total Risk Factor Score Risk Level Prophylaxis Regimen 0-1 Low Early ambulation 2 Moderate Order ONE of the following: *Sequential Compression Device (SCD) *Heparin 5000 units SQ BID 3-4 Higher Order ONE of the following medications: *Heparin 5000 units SQ TID *Enoxaparin/Lovenox 40 mg SQ daily (WT < 150 kg, CrCl > 30 mL/min) *Enoxaparin/Lovenox 30 mg SQ daily (WT < 150 kg, CrCl > 10-29 mL/min) *Enoxaparin/Lovenox 30 mg SQ BID (WT < 150 kg, CrCl > 30 mL/min) AND/OR *Sequential Compression Device (SCD) 5 or more Highest Order ONE of the following medications: *Heparin 5000 units SQ TID (Preferred with Epidurals) *Enoxaparin/Lovenox 40 mg SQ daily (WT < 150 kg, CrCl > 30 mL/min) *Enoxaparin/Lovenox 30 mg SQ daily (WT < 150 kg, CrCl > 10-29 mL/min) *Enoxaparin/Lovenox 30 mg SQ BID (WT < 150 kg, CrCl > 30 mL/min) AND *Sequential Compression Device (SCD) Assessment and Plan Problem List: (1) Syncope and collapse ICD Code: R55 - Syncope and collapse Status: Acute (2) Elevated brain natriuretic peptide (BNP) level ICD Code: R79.89 - Other specified abnormal findings of blood chemistry Status: Acute Assessment and Plan 86-year-old male with history of HTN, HLD, CAD s/p CABG, severe MR s/p bovine mitral valve replacement, anticoagulated on Coumadin, CKD stage III, BPH, Mni re's disease, neuropathy, presents after an acute syncopal episode earlier today. Syncope: unclear etiology, suspect vasovagal vs orthostatic hypotension, possible arrhythmia, rule out ACS. [facility] reported standing SBP in 70s upon arrival. CXR images reviewed, unremarkable. VQ scan with low probability for PE. -Hold patient's BP meds for now -Obtain records of recent 3 week event monitor done with Dr. Isabel -Rule out ACS with serial cardiac enzymes/EKG although no complaints of chest pain -Monitor on telemetry -Check orthostatics -Check carotid U/S -Give IVF hydration -Apply janes hose, [employer] on slow transitions -Consult PT -Consider consulting patient's hydraulic strainer operator Dr. Isabel if symptoms persist Elevated BNP: BNP 887. No signs of fluid overload on exam and CXR clear. Suspect secondary to recent surgery. Patient reports last EF 60%. -Records reviewed, last ZAYDA 10/03/16 with normal LV function -outpatient f/up with hydraulic strainer operator Dr. Isabel CAD s/p CABG: chronic -continue patient's aspirin; holding patient's coreg, losartan, and imdur with syncope as above. -monitor on telemetry -check serial cardiac enzymes and EKGs S/p Mitral Valve Replacement, Anticoagulated on Coumadin: chronic -INR 1.8 -continue patient's coumadin Hypertension: with orthostatic hypotension upon arrival -holding patient's losartan, coreg, and imdur for now -will plan to restart losartan if BP improves -monitor BP, adjust antihypertensives as needed CKD, stage III: chronic, appears around baseline -avoid nephrotoxins -outpatient f/up with brick burner head Hyperlipidemia: chronic -continue patient's statin BPH: chronic -continue patient's Proscar DVT Prophylaxis: on Coumadin Discussed Condition With Patient, Patient's , Dr. Wesley, RN Attending Statement S: 86 year old male admitted with syncope O: Patient has returned to baseline Physical exam: Neck -supple with no carotid bruits Heart -no murmurs, normal sinus rhythm Lungs - clear to auscultation bilaterally A/P: Syncope - I agree with the plan listed above. Etiology is most suspect to be arrythmia vs. VasoVagal. Orthostatic hypotension may also be present, but due to duration seems less likely. Proceed with work up as listed above. Alessia Karimi PA-C May 31, 2017 16:01 Fredis Wesley MD May 31, 2017 16:35
[2017-05-31 16:27] VITALS: BP 180/103; PULSE 87; RESP 18; TEMP 97.1; O2SAT 99
--- NOTE | 2017-05-31 17:22 | RADRPT ---
EXAM DATE/TIME: 05/31/2017 16:44 [place] COMPARISON: No previous studies available for comparison. INDICATIONS : Syncope. MEDICAL HISTORY : Hypercholesterolemia. Hypertension. Benign prostatic hyperplasia, (BPH) Myocardial infarction. Mcdonald ry artery disease. Renal failure. Arthritis. Carcinoma, basal cell. SURGICAL HISTORY : CABG. Bilateral cataract surgery. Tube placement, left ear. Mitral valve replacement. Cardiac catheterization. Coronary stent. Right knee arthroscopy. Multiple skin cancer removals. ENCOUNTER: Initial ACUITY: 1 day PAIN SCORE: 0/10 LOCATION: Bilateral neck PEAK SYSTOLIC VELOCITIES (cm/sec): ICA/CCA RATIO: Right: 1.2 Left: 1.0 ICA: Right: 62.8 Left: 65.8 CCA: Right: 53.7 Left: 62.9 ECA: Right: 53.7 Left: 53.7 VERTEBRAL: Right: 40.2 antegrade Left: 26.3 antegrade Elevated flow velocities and ICA/CCA ratios have been found to correlate with increased degrees of vessel stenosis, calculated as percentage of diameter relative to a normal segment of distal ICA/CCA FINDINGS: RIGHT CAROTID: No significant stenosis is visualized. The waveforms are within normal limits. LEFT CAROTID: Prominent amount of plaque in the carotid bulb and proximal internal carotid artery with shadowing cho ggesting calcification. There is no significant widening of the velocity spectrum in the internal car otid artery. VERTEBRAL ARTERIES: Antegrade flow is seen in both vertebral arteries. CONCLUSION: 1. Normal hemodynamic profile on the right side. 2. Prominent shadowing calcified plaque in the carotid bulb and proximal internal carotid artery with hemodynamic parameters characteristic of less than 50% stenosis. Yadiel Machuca MD on May 31, 2017 at 17:18 Board Certified Radiologist. This report was verified electronically.
[2017-05-31] MEDS: LOSARTAN 50 MG TAB PO PRN (17:41)
[2017-05-31] MEDS: WARFARIN SOD 3 MG TAB PO SCH (17:41)
[2017-05-31 20:00] VITALS: PULSE 84
[2017-05-31] MEDS ORDERED: CARVEDILOL 3.125 MG TAB PO SCH (21:00)
[2017-05-31 21:13] VITALS: BP_SYST 180; BP_SYST 184; BP_SYST 186; BP_DIAS 89; BP_DIAS 96; BP_DIAS 98; PULSE 84; RESP 18; TEMP 97.6; O2SAT 97
[2017-05-31] MEDS: GABAPENTIN 300 MG CAP PO SCH (22:29)
[2017-05-31] MEDS: SODIUM CHLORIDE 0.9% FLUSH 10 ML FLUSH IV FLUSH SCH (22:30)
[2017-05-31] MEDS ORDERED: cloNIDine HCL 0.1 MG TAB PO ONE (23:45)
[2017-05-31] MEDS: TEMAZEPAM 15 MG CAP PO PRN (23:54)
[2017-06-01] VITALS (8 sets, daily range): BP systolic 125–192; BP diastolic 67–106; PULSE 73–92; RESP 18–20; TEMP 97.2–98.3; O2SAT 96–99
[2017-06-01] MEDS: SODIUM CHLOR 0.9% 1000 ML INJ 1,000 ML IV SCH ×3 (02:40→18:23)
[2017-06-01] MEDS: GABAPENTIN 100 MG CAP PO SCH (06:19)
[2017-06-01 08:13] LABS: AUTOMATED NEUTROPHIL # 5.2 TH/MM3 (1.8-7.7); BASOPHIL # 0.1 TH/MM3 (0-0.2); BASOPHIL % 1.2 % (0.0-2.0); EOSINOPHIL # 0.5 TH/MM3 (0-0.4); EOSINOPHIL % 6.8 % (0.0-4.0); HEMATOCRIT 34.9 % (39.0-51.0); HEMOGLOBIN 11.2 GM/DL (13.0-17.0); LYMPH % 12.1 % (9.0-44.0); LYMPHOCYTE # 0.9 TH/MM3 (1.0-4.8); MEAN CELL VOLUME 76.9 FL (80.0-100.0); MEAN CORPUSCULAR HEMOGLOBIN 24.7 PG (27.0-34.0); MEAN CORPUSCULAR HGB CONC 32.1 % (32.0-36.0); MEAN PLATELET VOLUME 7.9 FL (7.0-11.0); MONO % 10.3 % (0.0-8.0); MONOCYTE # 0.8 TH/MM3 (0-0.9); NEUT % 69.6 % (16.0-70.0); PLATELET COUNT 255 TH/MM3 (150-450); RED BLOOD COUNT 4.54 MIL/MM3 (4.50-5.90); RED CELL DISTRIBUTION WIDTH 20.9 % (11.6-17.2); WHITE BLOOD COUNT 7.4 TH/MM3 (4.0-11.0)
[2017-06-01] MEDS: ASPIRIN EC 81 MG TABEC PO SCH (08:36)
[2017-06-01] MEDS: SODIUM CHLORIDE 0.9% FLUSH 10 ML FLUSH IV FLUSH SCH ×2 (08:36→20:28)
[2017-06-01] MEDS: FINASTERIDE 5 MG TAB PO SCH (08:36)
[2017-06-01] MEDS: ATORVASTATIN 20 MG TAB PO SCH (08:36)
[2017-06-01 08:53] LABS: ALBUMIN 2.4 GM/DL (3.4-5.0); AST (GOT) 16 U/L (15-37); BICARBONATE 22.3 MEQ/L (21.0-32.0); BLOOD UREA NITROGEN 47 MG/DL (7-18); CALCIUM 8.5 MG/DL (8.5-10.1); CHLORIDE 110 MEQ/L (98-107); CREATININE 1.98 MG/DL (0.60-1.30); GLOMERULAR FILTRATION RATE 32 ML/MIN (>89); GLUCOSE,RANDOM 91 MG/DL (74-106); SODIUM (NA) 141 MEQ/L (136-145)
[2017-06-01 08:56] LABS: ALKALINE PHOSPHATASE 120 U/L (45-117); ALT (GPT) 19 U/L (12-78); TOTAL BILIRUBIN ADULT 0.5 MG/DL (0.2-1.0); TOTAL PROTEIN 5.8 GM/DL (6.4-8.2)
--- NOTE | 2017-06-01 10:09 | HHI.PR ---
Subjective Remarks Follow up syncope. Patient has no complaints at this time. States that he wants to go home. Denies chest pain, dyspnea. Ambulated with assistance this morning and had no lightheadedness/dizziness. States that he is being very careful to stand up slowly. Objective Vitals Vital Signs Date Time Temp Pulse Resp B/P (MAP) Pulse Ox O2 Delivery O2 Flow Rate FiO2 06/01/17 08:00 139/71 (93) 06/01/17 08:00 145/78 (100) 06/01/17 08:00 98.3 78 18 140/80 (100) 97 06/01/17 05:16 97.6 73 18 153/87 (109) 96 142/81 (101) 125/67 (86) 06/01/17 01:33 84 19 135/86 (102) 06/01/17 01:24 88 06/01/17 01:21 97.2 92 20 192/106 (134) 98 05/31/17 21:13 97.6 84 18 184/96 (125) 97 186/98 (127) 180/89 (119) 05/31/17 20:00 84 05/31/17 16:27 97.1 87 18 180/103 (128) 99 05/31/17 14:12 05/31/17 10:20 98 Room Air I/O 05/31/17 05/31/17 05/31/17 06/01/17 06/01/17 06/01/17 07:00 15:00 23:00 07:00 15:00 23:00 Intake Total 1000 ml Balance 1000 ml Intake IV Total 1000 ml Result Diagram: 06/01/17 0729 06/01/17 0729 Imaging Last Impressions Chest X-Ray 05/31/17 0957 Signed Impressions: Service Date/Time: Wednesday, May 31, 2017 10:04 - CONCLUSION: No acute disease. Taiwo Serrato MD Lung Scan-V Nuclear Medicine 05/31/17 0000 Signed Impressions: Service Date/Time: Wednesday, May 31, 2017 13:54 - CONCLUSION: Low probability pulmonary embolism. Yadiel Machuca MD Carotid Artery Ultrasound 05/31/17 0000 Signed Impressions: Service Date/Time: Wednesday, May 31, 2017 16:44 - CONCLUSION: 1. Normal hemodynamic profile on the right side. 2. Prominent shadowing calcified plaque in the carotid bulb and proximal internal carotid artery with hemodynamic parameters characteristic of less than 50%% stenosis. Yadiel Machuca MD Objective Remarks General: Elderly male in no acute distress. Sitting up in a chair. Heart: Regular rate and rhythm. No murmur. Lungs: Clear to auscultation bilaterally. No wheezes, rales, or rhonchi. Breathing is nonlabored. Abdomen: Soft, nontender, nondistended. Extremities: No lower extremity edema. Psych: Alert and oriented. Procedures None Urinary Catheter: No Vascular Central Line Catheter: No A/P Problem List: (1) Syncope and collapse ICD Code: R55 - Syncope and collapse Status: Acute (2) Elevated brain natriuretic peptide (BNP) level ICD Code: R79.89 - Other specified abnormal findings of blood chemistry Status: Acute (3) Hypertension ICD Code: I10 - Essential (primary) hypertension (4) Chronic kidney disease, stage 3 ICD Code: N18.3 - Chronic kidney disease, stage 3 (moderate) (5) Hyperlipidemia ICD Code: E78.5 - Hyperlipidemia, unspecified (6) BPH (benign prostatic hyperplasia) ICD Code: N40.0 - Benign prostatic hyperplasia without lower urinary tract symptoms (7) Coronary artery disease ICD Code: I25.10 - Atherosclerotic heart disease of [place] coronary artery without angina pectoris Assessment and Plan 1. Syncope: Uncertain etiology. Likely vasovagal versus orthostatic hypotension. Arrhythmia is possible. Patient reportedly had standing systolic blood pressure in the 70s per paramedics. Telemetry reviewed. Echocardiogram ordered. Consult placed to patient's rocket motor mechanic, Dr. Isabel. 2. Elevated BNP: Patient does not have any clinical signs of fluid overload. This is likely secondary to recent surgery. 3. Coronary artery disease: Chronic, asymptomatic. Patient has history of CABG. Continue aspirin. Coreg, losartan, on hold secondary to syncope. 4. Status post mitral valve replacement: Continue Coumadin. 5. Hypertension: Patient had orthostatic hypotension on arrival. Losartan, Coreg , Imdur on hold. Restart losartan when blood pressure improves. 6. Chronic kidney disease stage III: Creatinine is approximately at the patient' s baseline. Avoid nephrotoxins. Follow-up as outpatient with nephrology. 7. Hyperlipidemia: Continue statin. 8. BPH: Continue Proscar. 9. DVT prophylaxis: Coumadin. Discharge Planning The patient is requesting discharge home today. Possible discharge home pending echocardiogram and cardiology clearance. Rl Lloyd MD Jun 01, 2017 10:09
[2017-06-01 12:32] LABS: INTERNATIONAL NORMALIZED RATIO 1.7 RATIO
--- NOTE | 2017-06-01 14:25 | ECHRPT ---
Indication: EF assessment of CHF CONCLUSIONS Mildly dilated left ventricle. Mild concentric left ventricular hypertrophy. The left ventricular systolic function is severely reduced with an estimated ejection fraction in th e range of 30-35%. Global hypokinesis. The left atrial size is [id number] dilated. The right atrial size is rqxz-jl-mmsnhdrnch dilated. Mitral valve mean gradient is 9 mmHg. There is moderate stenosis of the mitral valve Bioprosthesis, mean gradient 9 mmHg. Aortic valve sclerosis is present. Mild aortic valve regurgitation. There is mild tricuspid valve regurgitation. The estimated pulmonary arterial pressure is 32.7 mmHg. Moderate pulmonary valve regurgitation. BP: 153 / 87 HR: Rhythm: Sinus, Atrial fibrillation MEASUREMENTS (Male / Female) Normal Values Technical Quality:Fair 2D ECHO LV Diastolic Diameter PLAX 5.6 cm 4.2 - 5.9 / 3.9 - 5.3 cm LV Systolic Diameter PLAX 4.8 cm IVS Diastolic Thickness 1.0 cm 0.6 - 1.0 / 0.6 - 0.9 cm LVPW Diastolic Thickness 1.0 cm 0.6 - 1.0 / 0.6 - 0.9 cm LV Relative Wall Thickness 0.4 RV Internal Dim ED PLAX 2.9 cm LVOT Diameter 1.8 cm Aortic Root Diameter 3.2 cm LA Systolic Diameter LX 3.1 cm 3.0 - 4.0 / 2.7 - 3.8 cm M-MODE AV Cusp Separation MM 1.8 cm DOPPLER AV Peak Velocity 97.9 cm/s AV Peak Gradient 3.8 mmHg AV Mean Gradient 2.0 mmHg AV Velocity Time Integral 17.4 cm LVOT Peak Velocity 73.1 cm/s LVOT Peak Gradient 2.1 mmHg LVOT Velocity Time Integral 13.9 cm AV Area Cont Eq vti 2.0 cm AV Area Cont Eq pk 1.9 cm MV Peak Velocity 223.8 cm/s MV Peak Gradient 20.0 mmHg MV Mean Velocity 128.0 cm/s MV Mean Gradient 9.0 mmHg MV Area PHT 3.0 cm Mitral E Point Velocity 175.0 cm/s LV E' Lateral Velocity 7.3 cm/s Mitral E to LV E' Lateral Ratio 23.9 LV E' Septal Velocity 4.8 cm/s Mitral E to LV E' Septal Ratio 36.6 TR Peak Velocity 238.0 cm/s TR Peak Gradient 22.7 mmHg Right Atrial Pressure 10.0 mmHg Pulmonary Artery Systolic Pressu 32.7 mmHg Right Ventricular Systolic Press 32.7 mmHg PV Peak Velocity 52.6 cm/s PV Peak Gradient 1.1 mmHg FINDINGS LEFT VENTRICLE Mildly dilated left ventricle. Mild concentric left ventricular hypertrophy. The left ventricular systolic function is severely reduced with an estimated ejection fraction in th e range of 30-35%. There is global left ventricular dysfunction. RIGHT VENTRICLE Normal right ventricular size and systolic function. LEFT ATRIUM The left atrial size is cwbw-xm-tcsffuejze dilated. RIGHT ATRIUM The right atrial size is gktm-sj-xwwsazfzju dilated. ATRIAL SEPTUM Normal atrial septal thickness without atrial level shunting by limited color doppler interrogation. AORTA The aortic root and proximal ascending aorta are normal in size on limited imaging. MITRAL VALVE Mitral valve mean gradient is 9 mmHg. There is moderate stenosis of the mitral valve Bioprosthesis, mean gradient 9 mmHg. AORTIC VALVE Aortic valve sclerosis is present. Mild aortic valve regurgitation. TRICUSPID VALVE There is mild tricuspid valve regurgitation. The estimated pulmonary arterial pressure is 32.7 mmHg. PULMONARY VALVE Moderate pulmonary valve regurgitation. VESSELS The inferior vena cava is normal in size. PERICARDIUM No pericardial effusion. Jack Luis MD (Electronically Signed) Final Date:01 June 2017 14:24
--- NOTE | 2017-06-01 15:41 | HHI.DCPOC ---
Discharge Care Plan Diagnosis: (1) Chronic kidney disease, stage 3 (2) BPH (benign prostatic hyperplasia) (3) Hypertension (4) Hyperlipidemia (5) Coronary artery disease (6) Syncope and collapse (7) Elevated brain natriuretic peptide (BNP) level Goals to Promote Your Health * To prevent worsening of your condition and complications * To maintain your health at the optimal level Directions to Meet Your Goals Take your medications as prescribed Follow your dietary instruction Follow activity as directed Keep your appointments as scheduled Take your immunizations and boosters as scheduled If your symptoms worsen call your PCP, if no PCP go to Urgent Care Center or Emergency Room Smoking is Dangerous to Your Health. Avoid second hand smoke Call the 24-hour hour crisis hotline for domestic abuse at Rl Lloyd MD Jun 01, 2017 15:41
[2017-06-01] MEDS: WARFARIN SOD 3 MG TAB PO SCH (15:54)
--- NOTE | 2017-06-01 17:30 | MB ---
cc: PENNIE KRISHNAMURTHY M.D., B[place] G. DO DATE OF CONSULTATION: 06/01/2017. IMPRESSIONS: 1. Syncope likely related to orthostatic hypotension, rule out ventricular tachyarrhythmia, rule out seizure disorder but would seem unlikely. 2. 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 3. Hypertension. 4. Chronic warfarin therapy. 5. Questionable history of atrial fibrillation. 6. Chronic kidney disease. 7. Prostatism. 8. Peripheral neuropathy. 9. Meniere's disease. 10. History of multiple basal cell carcinomas. RECOMMENDATIONS: 1. Discontinue diuretic. 2. I would decrease the dose of Losartan to 50 milligrams once per day. 3. I would increase Coreg to 6.25 twice a day. 4. Maintain warfarin therapy with INR goal 2 to 3. 5. Check an 8:00 a.m. cortisol level. 6. Cautious rehydration. I do not have access to the patient's cardiac catheterization report regarding his pulmonary hemodynamics. CLINICAL DATA: Mr. Ortez is an 86-year-old male who was admitted to the hospital with syncope. Apparently he was doing physical therapy when he passed out. His states he was out for at least five minutes. He apparently was quite sweaty before this happened. He had incontinence of bladder and apparently was foaming at the mouth. There was no postictal depression. He apparently had mitral regurgitation and underwent mitral valve replacement and single-vessel coronary bypass grafting surgery. He had perioperative atrial fibrillation but has otherwise done well. PAST SURGICAL HISTORY: His other surgical history includes: 1. Cardiac catheterization. 2. Coronary bypass grafting surgery. 3. Tympanoplasty with re-do. 4. Bilateral cataracts. MEDICATIONS ON ADMISSION: 1. Gabapentin 300 daily. 2. Warfarin 3 milligrams daily. 3. Isosorbide mononitrate 30 daily. 4. Carvedilol 3.125 twice a day. 5. Losartan 50 twice a day. 6. Gabapentin 100 daily. 7. Finasteride 5 daily. 8. Lipitor 20 daily. 9. Aspirin 81 daily. 10. The patient tells me that he was also on Bumex 1 milligram daily, although this is not reflected in the medical record. He has had no bleeding problems. He does have black stools but was started on iron recently by his diamond expert, presumably for anemia. His hematocrit at the time of admission to the hospital was 36%. He has had no recent chest pain. He has no history of seizures. He has no history of pericardial disease. He has no history of diabetes but random blood sugars are noted to be 144 on admission. He has a history of dyslipidemia. He has no previous history of seizure or stroke or TIA. There is no history of asthma or bronchitis or emphysema. No history of peptic ulcer disease. There is no history of liver disease or thyroid disease. There is a history of chronic renal failure and prostatism. He has had no chest pain. He has had no lower extremity edema. He has had no PND or orthopnea. PHYSICAL EXAMINATION: GENERAL: The physical exam at this time demonstrates an alert oriented male in no apparent distress. VITAL SIGNS: His most recent blood pressure is 192/106. His nurse tells me that orthostatics were performed earlier and systolic pressure dropped from 156 to 128. HEAD, EYES, EARS, NOSE, THROAT: Anicteric sclerae. NECK: Jugular venous pressures are normal. There are no bruits. LUNGS: He has clear lung shore. CARDIAC: Cardiac exam demonstrates a regular rate and rhythm with a third heart sound noted. There is some arrhythmia noted during the exam. ABDOMEN: Abdomen soft and nontender. EXTREMITIES: Free of cyanosis, clubbing, edema, normal pulses. IMAGING STUDIES: Single view chest x-ray unremarkable. LABORATORY DATA: Admitting lytes 138, 4.7, 107, 22 with a BUN of 46, creatinine of 2.1, GFR 30. Normal transaminases. Albumin 2.5. BNP 887. Platelet count 273,000, white cell count 7700. EKGS: A 12-lead electrocardiogram demonstrates a sinus rhythm with first-degree AV block, septal Q-waves and poor R-wave progression, nonspecific S-T-T changes. DISCUSSION: This is an 86-year-old male about a month post mitral valve replacement and single-vessel coronary bypass grafting surgery admitted to the hospital with true syncope. He has positive orthostatic blood pressures. Since being monitored in the hospital so far he has had no reported atrial fibrillation. RECOMMENDATIONS: As noted above. Cross Sickinger, DO BS/TASNEEM /3:02 PM /5:03 PM
[2017-06-01] MEDS: GABAPENTIN 300 MG CAP PO SCH (20:27)
[2017-06-01] MEDS: TEMAZEPAM 15 MG CAP PO PRN (20:27)
[2017-06-02] VITALS (10 sets, daily range): BP systolic 107–208; BP diastolic 71–117; PULSE 67–91; RESP 17–20; TEMP 97–98.6; O2SAT 95–100
[2017-06-02] MEDS: GABAPENTIN 100 MG CAP PO SCH (06:23)
[2017-06-02] MEDS: SODIUM CHLORIDE 0.9% FLUSH 10 ML FLUSH IV FLUSH SCH ×2 (08:06→21:00)
[2017-06-02] MEDS: FINASTERIDE 5 MG TAB PO SCH (08:07)
[2017-06-02] MEDS: ASPIRIN EC 81 MG TABEC PO SCH (08:07)
[2017-06-02] MEDS: ATORVASTATIN 20 MG TAB PO SCH (08:07)
[2017-06-02 08:43] LABS: INTERNATIONAL NORMALIZED RATIO 1.6 RATIO; PROTHROMBIN TIME - PATIENT 16.6 SEC (9.8-11.6)
[2017-06-02 08:46] LABS: AUTOMATED NEUTROPHIL # 5.2 TH/MM3 (1.8-7.7); BASOPHIL # 0.1 TH/MM3 (0-0.2); BASOPHIL % 1.4 % (0.0-2.0); EOSINOPHIL # 0.6 TH/MM3 (0-0.4); EOSINOPHIL % 8.4 % (0.0-4.0); HEMATOCRIT 37.9 % (39.0-51.0); HEMOGLOBIN 11.9 GM/DL (13.0-17.0); LYMPH % 12.7 % (9.0-44.0); MEAN CORPUSCULAR HEMOGLOBIN 24.8 PG (27.0-34.0); MEAN CORPUSCULAR HGB CONC 31.4 % (32.0-36.0); MEAN PLATELET VOLUME 8.1 FL (7.0-11.0); MONO % 9.5 % (0.0-8.0); MONOCYTE # 0.7 TH/MM3 (0-0.9); PLATELET COUNT 333 TH/MM3 (150-450); RED BLOOD COUNT 4.79 MIL/MM3 (4.50-5.90); WHITE BLOOD COUNT 7.6 TH/MM3 (4.0-11.0)
[2017-06-02 09:04] LABS: ALBUMIN 2.4 GM/DL (3.4-5.0); AST (GOT) 21 U/L (15-37); BICARBONATE 21.8 MEQ/L (21.0-32.0); BLOOD UREA NITROGEN 42 MG/DL (7-18); CALCIUM 8.4 MG/DL (8.5-10.1); CHLORIDE 111 MEQ/L (98-107); CREATININE 1.89 MG/DL (0.60-1.30); GLOMERULAR FILTRATION RATE 34 ML/MIN (>89); GLUCOSE,RANDOM 82 MG/DL (74-106); SODIUM (NA) 140 MEQ/L (136-145)
[2017-06-02 09:09] LABS: ALKALINE PHOSPHATASE 123 U/L (45-117); ALT (GPT) 19 U/L (12-78); TOTAL BILIRUBIN ADULT 0.4 MG/DL (0.2-1.0); TOTAL PROTEIN 5.9 GM/DL (6.4-8.2)
--- NOTE | 2017-06-02 11:13 | HHI.PR ---
Subjective Remarks Follow up syncope. Patient has no complaints at this time. Denies chest pain, dyspnea, lightheadedness, dizziness. Ambulating without difficulty. Wants to go home. Objective Vitals Vital Signs Date Time Temp Pulse Resp B/P (MAP) Pulse Ox O2 Delivery O2 Flow Rate FiO2 06/02/17 08:00 97.8 88 18 175/99 (124) 100 06/02/17 04:28 75 06/02/17 04:00 97.0 67 20 107/71 (83) 95 06/02/17 00:00 98.6 73 18 130/80 (97) 98 06/01/17 20:00 98.3 86 18 138/83 (101) 98 06/01/17 16:00 97.6 89 18 175/96 (122) 99 06/01/17 12:00 128/77 (94) 06/01/17 12:00 145/70 (95) 06/01/17 12:00 97.7 78 18 156/81 (106) 97 I/O 06/01/17 06/01/17 06/01/17 06/02/17 06/02/17 06/02/17 07:00 15:00 23:00 07:00 15:00 23:00 Intake Total 1000 ml 1720 ml Output Total 650 ml 575 ml Balance 1000 ml 1070 ml -575 ml Intake Oral 720 ml IV Total 1000 ml 1000 ml Output Urine Total 650 ml 575 ml # Bowel Movements 0 Result Diagram: 06/02/17 0708 06/02/17 0708 Imaging Last Impressions Chest X-Ray 05/31/17 0957 Signed Impressions: Service Date/Time: Wednesday, May 31, 2017 10:04 - CONCLUSION: No acute disease. Taiwo Serrato MD Lung Scan-VQ Nuclear Medicine 05/31/17 0000 Signed Impressions: Service Date/Time: Wednesday, May 31, 2017 13:54 - CONCLUSION: Low probability pulmonary embolism. Yadiel Machuca MD Carotid Artery Ultrasound 05/31/17 0000 Signed Impressions: Service Date/Time: Wednesday, May 31, 2017 16:44 - CONCLUSION: 1. Normal hemodynamic profile on the right side. 2. Prominent shadowing calcified plaque in the carotid bulb and proximal internal carotid artery with hemodynamic parameters characteristic of less than 50%% stenosis. Yadiel Machuca MD Objective Remarks General: Elderly male in no acute distress. Sitting up in a chair. Heart: Regular rate and rhythm. No murmur. Lungs: Clear to auscultation bilaterally. No wheezes, rales, or rhonchi. Breathing is nonlabored. Abdomen: Soft, nontender, nondistended. Extremities: No lower extremity edema. Psych: Alert and oriented. Procedures None Urinary Catheter: No Vascular Central Line Catheter: No A/P Problem List: (1) Syncope and collapse ICD Code: R55 - Syncope and collapse Status: Acute (2) Elevated brain natriuretic peptide (BNP) level ICD Code: R79.89 - Other specified abnormal findings of blood chemistry Status: Acute (3) Hypertension ICD Code: I10 - Essential (primary) hypertension (4) Chronic kidney disease, stage 3 ICD Code: N18.3 - Chronic kidney disease, stage 3 (moderate) (5) Hyperlipidemia ICD Code: E78.5 - Hyperlipidemia, unspecified (6) BPH (benign prostatic hyperplasia) ICD Code: N40.0 - Benign prostatic hyperplasia without lower urinary tract symptoms (7) Coronary artery disease ICD Code: I25.10 - Atherosclerotic heart disease of [place] coronary artery without angina pectoris Assessment and Plan 1. Syncope: Uncertain etiology. Likely vasovagal versus orthostatic hypotension. Arrhythmia is possible. Patient reportedly had standing systolic blood pressure in the 70s per paramedics. Telemetry reviewed. Echocardiogram shows EF 30%. No prior echo report available, but patient reports EF ~50% a year ago. Appreciate cardiology recommendations. 2. Elevated BNP: Patient does not have any clinical signs of fluid overload. This is likely secondary to recent surgery. 3. Coronary artery disease: Chronic, asymptomatic. Patient has history of CABG. Continue aspirin. Coreg, losartan, on hold secondary to syncope. 4. Status post mitral valve replacement: Echocardiogram shows moderate stenosis of the mitral valve bioprosthesis. 5. Hypertension: Patient had orthostatic hypotension on arrival. Losartan, Coreg , Imdur on hold. Restart losartan when blood pressure improves. 6. Chronic kidney disease stage III: Creatinine is approximately at the patient' s baseline. Avoid nephrotoxins. Follow-up as outpatient with nephrology. 7. Hyperlipidemia: Continue statin. 8. BPH: Continue Proscar. 9. Atrial fibrillation: Rate controlled. Continue coumadin. Appreciate cardiology recommendations. 10. DVT prophylaxis: Coumadin. Discharge Planning The patient wants to go home today. Possible discharge home pending cardiology clearance. Rl Lloyd MD Jun 02, 2017 11:13
--- NOTE | 2017-06-02 12:47 | EKG ---
Date Performed: 05/31/2017 Time Performed: 16:21:18 PTAGE: 86 years EKG: Sinus rhythm WITH FIRST DEGREE AV BLOCK NONSPECIFIC T-WAVE ABNORMALITY Compared to prior tracing no significant c trevone ABNORMAL ECG PREVIOUS TRACING : 05/31/2017 09.28 DOCTOR: Jewel Ellis Interpretating Date/Time 06/02/2017 12:45:52
[2017-06-02] MEDS: SODIUM CHLOR 0.9% 1000 ML INJ 1,000 ML IV SCH (15:23)
[2017-06-02] MEDS: LOSARTAN 50 MG TAB PO PRN (15:24)
[2017-06-02] MEDS ORDERED: WARFARIN SOD 1 MG TAB PO SCH (16:00)
[2017-06-02] MEDS ORDERED: WARFARIN SOD 4 MG TAB PO SCH (16:00)
[2017-06-02] MEDS ORDERED: WARFARIN SOD 3 MG TAB PO ONE (16:00)
[2017-06-02] MEDS: GABAPENTIN 300 MG CAP PO SCH (21:13)
[2017-06-02] MEDS ORDERED: METOPROLOL TARTRATE 50 MG TAB PO ONE (21:45)
[2017-06-02] MEDS: TEMAZEPAM 15 MG CAP PO PRN (22:05)
[2017-06-03 01:18] VITALS: BP 132/73; PULSE 76; RESP 18; TEMP 98.5; O2SAT 97
[2017-06-03 06:29] VITALS: BP 166/82; PULSE 71; RESP 19; TEMP 98.1; O2SAT 97
[2017-06-03] MEDS: GABAPENTIN 100 MG CAP PO SCH (07:11)
[2017-06-03 08:00] LABS: INTERNATIONAL NORMALIZED RATIO 1.7 RATIO; PROTHROMBIN TIME - PATIENT 16.7 SEC (9.8-11.6)
[2017-06-03 08:14] LABS: BICARBONATE 23.6 MEQ/L (21.0-32.0); CALCIUM 8.3 MG/DL (8.5-10.1); CREATININE 1.86 MG/DL (0.60-1.30)
[2017-06-03 08:39] VITALS: BP 159/102; PULSE 73; RESP 18; TEMP 98.1; O2SAT 96
[2017-06-03] MEDS: ATORVASTATIN 20 MG TAB PO SCH (08:42)
[2017-06-03] MEDS: FINASTERIDE 5 MG TAB PO SCH (08:42)
[2017-06-03] MEDS: ASPIRIN EC 81 MG TABEC PO SCH (08:42)
[2017-06-03] MEDS: SODIUM CHLORIDE 0.9% FLUSH 10 ML FLUSH IV FLUSH SCH (09:00)
[2017-06-03 09:45] VITALS: PULSE 82
[2017-06-03] MEDS ORDERED: CARV6.25 PO (11:28)
[2017-06-03] MEDS ORDERED: LOSA50TA PO (11:28)
--- NOTE | 2017-06-03 11:37 | HHI.DS ---
Discharge Summary Admission Date May 31, 2017 at 13:10 Discharge Date: Jun 03, 2017 Admitting Diagnosis Syncope; CHF (1) Syncope and collapse ICD Code: R55 - Syncope and collapse Status: Acute (2) Elevated brain natriuretic peptide (BNP) level ICD Code: R79.89 - Other specified abnormal findings of blood chemistry Status: Acute (3) Hypertension ICD Code: I10 - Essential (primary) hypertension (4) Chronic kidney disease, stage 3 ICD Code: N18.3 - Chronic kidney disease, stage 3 (moderate) (5) Hyperlipidemia ICD Code: E78.5 - Hyperlipidemia, unspecified (6) BPH (benign prostatic hyperplasia) ICD Code: N40.0 - Benign prostatic hyperplasia without lower urinary tract symptoms (7) Coronary artery disease ICD Code: I25.10 - Atherosclerotic heart disease of [place] coronary artery without angina pectoris Procedures None Brief History - From Admission 86-year-old male with history of HTN, HLD, CAD s/p CABG, severe MR s/p bovine mitral valve replacement, anticoagulated on Coumadin, CKD stage III, BPH, Mni re's disease, neuropathy, presents after an acute syncopal episode earlier today. The patient reports that he recently had CABG with bypass of LAD and mitral valve replacement done at [facility] on 03/01/17. He states he has been doing fairly well except feeling fatigued and winded at times. A few weeks ago he was told he was iron deficient, started on iron supplementation by his development consultant, now having black stools. He has been performing physical therapy with home health care. Today his physical therapist visited him around 8 AM and started his session. Around 8:20 AM the patient was standing during an exercise when he had profuse diaphoresis, started to feel lightheaded, sat down in a chair, and that is last thing he remembers. The was in another room when the therapist yelled to call 911. The states that the patient was out for at least five minutes. He had bladder incontinence and secretions from the mouth. The next thing the patient remembers is [facility] arriving. He states they did check his blood pressure sitting down and standing up, and he remembers his standing systolic blood pressure in the 70s. The reports he was AAO 4 upon his awakening. Denies noticing any facial droop, slurred speech, or unilateral weakness. The patient denies ever having any palpitations or chest pain. He states he is "winded" and short of breath at baseline even prior to surgery. He denies any recent fevers/chills, congestion, cough, nausea/vomiting, diarrhea, or urinary complaints. He denies any recent changes to medications other than the addition of iron supplementation 2 weeks ago. The patient's cane stripper is Dr. Isabel. The patient did just complete a 3 week event monitor to evaluate for afib however he has not yet received the results. The patient was told that he had an episode of afib after his surgery, otherwise denies any other history of arrhythmia. The patient has no other medical complaints at this time. Currently the patient feels better, denies any lightheadedness, but does feel fatigued. He wants to go home as soon as possible. CBC/BMP: 06/02/17 0708 06/03/17 0701 Significant Findings Laboratory Tests Test 05/31/17 16:26 06/01/17 07:29 06/01/17 11:59 06/02/17 07:08 Hemoglobin 11.2 GM/DL (13.0-17.0) 11.9 GM/DL (13.0-17.0) Hematocrit 34.9 % (39.0-51.0) 37.9 % (39.0-51.0) Mean Corpuscular Volume 76.9 FL (80.0-100.0) 79.0 FL (80.0-100.0) Mean Corpuscular Hemoglobin 24.7 PG (27.0-34.0) 24.8 PG (27.0-34.0) Red Cell Distribution Width 20.9 % (11.6-17.2) 21.0 % (11.6-17.2) Monocytes (%) (Auto) 10.3 % (0.0-8.0) 9.5 % (0.0-8.0) Eosinophils (%) (Auto) 6.8 % (0.0-4.0) 8.4 % (0.0-4.0) Lymphocytes # (Auto) 0.9 TH/MM3 (1.0-4.8) Eosinophils # (Auto) 0.5 TH/MM3 (0-0.4) 0.6 TH/MM3 (0-0.4) Blood Urea Nitrogen 47 MG/DL (7-18) 42 MG/DL (7-18) Creatinine 1.98 MG/DL (0.60-1.30) 1.89 MG/DL (0.60-1.30) Total Protein 5.8 GM/DL (6.4-8.2) 5.9 GM/DL (6.4-8.2) Albumin 2.4 GM/DL (3.4-5.0) 2.4 GM/DL (3.4-5.0) Alkaline Phosphatase 120 U/L (45-117) 123 U/L (45-117) Chloride Level 110 MEQ/L (98-107) 111 MEQ/L (98-107) Estimat Glomerular Filtration Rate 32 ML/MIN (>89) 34 ML/MIN (>89) Prothrombin Time 17.0 SEC (9.8-11.6) 16.6 SEC (9.8-11.6) Mean Corpuscular Hemoglobin Concent 31.4 % (32.0-36.0) Calcium Level 8.4 MG/DL (8.5-10.1) Test 06/03/17 07:01 Prothrombin Time 16.7 SEC (9.8-11.6) Blood Urea Nitrogen 42 MG/DL (7-18) Creatinine 1.86 MG/DL (0.60-1.30) Calcium Level 8.3 MG/DL (8.5-10.1) Chloride Level 112 MEQ/L (98-107) Estimat Glomerular Filtration Rate 35 ML/MIN (>89) Imaging Last Impressions Chest X-Ray 05/31/17 0957 Signed Impressions: Service Date/Time: Wednesday, May 31, 2017 10:04 - CONCLUSION: No acute disease. Taiwo Serrato MD Lung Scan-V Nuclear Medicine 05/31/17 0000 Signed Impressions: Service Date/Time: Wednesday, May 31, 2017 13:54 - CONCLUSION: Low probability pulmonary embolism. Yadiel Machuca MD Carotid Artery Ultrasound 05/31/17 0000 Signed Impressions: Service Date/Time: Wednesday, May 31, 2017 16:44 - CONCLUSION: 1. Normal hemodynamic profile on the right side. 2. Prominent shadowing calcified plaque in the carotid bulb and proximal internal carotid artery with hemodynamic parameters characteristic of less than 50%% stenosis. Yadiel Machuca MD PE at Discharge General: Elderly male in no acute distress. Sitting up in a chair. Heart: Regular rate and rhythm. No murmur. Lungs: Clear to auscultation bilaterally. No wheezes, rales, or rhonchi. Breathing is nonlabored. Abdomen: Soft, nontender, nondistended. Extremities: No lower extremity edema. Psych: Alert and oriented. Pt update on day of discharge The patient was anxious to go home. He said that he has not had any more episodes of feeling faint. Discussed with nursing. Hospital Course Syncope Patient reportedly had standing systolic blood pressure in the 70s per paramedics. Found to be orthostatic. His blood pressure fluctuated. Initially losartan and Coreg were held. Losartan was resumed as his blood pressure remained elevated. The pt was monitored on telemetry. Echocardiogram showed EF 30%. Cardiology was consulted. Medications were changed to losartan 50 mg daily and Coreg 6.25 mg BID at the time of discharge. He will follow up with cardiology as an outpt. He was continued on his cardiac regimen. Chronic kidney disease stage III Creatinine is approximately at the patient's baseline. He will follow-up as an outpatient with nephrology. Atrial fibrillation Rate controlled. We continued Coumadin, which he will continue upon discharge. Pt Condition on Discharge: Good Discharge Disposition: Discharge Home Discharge Time: > 30 minutes Discharge Instructions DIET: Follow Instructions for: Heart Healthy Diet Activities you can perform: Weight Bearing as Tha Follow up Referrals: Cardiology - 1 Week with Tay Hinojosa DO PCP Follow-up - 1 Week New Medications: Carvedilol (Coreg) 6.25 Mg Tab 6.25 MG PO BID for Blood Pressure Management, #60 TAB 0 Refills Losartan (Losartan) 50 Mg Tab 50 MG PO DAILY for Blood Pressure Management, #30 TAB 0 Refills Continued Medications: Aspirin DR (Aspirin DR) 81 Mg Tabdr 81 MG PO DAILY, TAB 0 Refills Atorvastatin (Lipitor) 20 Mg Tab 20 MG PO DAILY for Cholesterol Management, TAB 0 Refills Finasteride (Finasteride) 5 Mg Tab 5 MG PO DAILY for Manage Prostate Problems, TAB 0 Refills Do not crush. Gabapentin (Gabapentin) 100 Mg Cap 100 MG PO AC BREAKFAST, CAP 0 Refills Gabapentin (Gabapentin) 300 Mg Cap 300 MG PO HS, #30 CAP 0 Refills Isosorbide Mononitrate ER (Isosorbide Mononitrate ER) 30 Mg Melonie 30 MG PO DAILY for Prevent Chest Pain, #30 TAB 0 Refills Warfarin (Warfarin) 3 Mg Tab 3 MG PO DAILY for Blood Clot Prevention, #30 TAB 0 Refills Discontinued Medications: Carvedilol (Carvedilol) 3.125 Mg Tab 3.125 MG PO BID, #60 TAB 0 Refills Losartan (Losartan) 50 Mg Tab 50 MG PO BID for Blood Pressure Management, TAB 0 Refills Taiwo Kaufman DO Jun 03, 2017 11:37
[2017-06-03] MEDS ORDERED: WARFARIN SOD 1 MG TAB PO SCH (16:00)
[2017-06-03] MEDS ORDERED: WARFARIN SOD 3 MG TAB PO SCH (16:00)
== END 2017-06-03 12:56 | disposition home or self-care (01) ==
LOC: NEPC 09:16 → UNDOADMOB 13:10 → INTOOBSV 13:10 → NEDA 13:10 → N05B 14:38 → UNDODISOB 06-03 12:56
PROVIDERS: ADMIT Hospitalist; ATTEND Hospitalist
DX: I95.1 Orthostatic hypotension (principal); R79.89 Other specified abnormal findings of blood chemistry; I13.0 Hypertensive heart and chronic kidney disease with heart failure and stage 1 through stage 4 chronic kidney disease, or unspecified chronic kidney disease; E78.5 Hyperlipidemia, unspecified; I25.10 Atherosclerotic heart disease of native coronary artery without angina pectoris; Z95.1 Presence of aortocoronary bypass graft; Z95.3 Presence of xenogenic heart valve; Z79.01 Long term (current) use of anticoagulants; I50.9 Heart failure, unspecified; N18.3 Chronic kidney disease, stage 3 (moderate); N40.0 Benign prostatic hyperplasia without lower urinary tract symptoms; G62.9 Polyneuropathy, unspecified; H81.09 Meniere's disease, unspecified ear; I48.91 Unspecified atrial fibrillation; I44.0 Atrioventricular block, first degree; Z79.899 Other long term (current) drug therapy; I25.2 Old myocardial infarction; R32 Unspecified urinary incontinence; E61.1 Iron deficiency
CPT/HCPCS: 71010; 78582; 80048; 80053; 82533; 82550; 83735; 83880; 84484; 85025; 85610; 85730; 93005; 93308; 93880; 96360; 97162; 99285; A9540; A9567; G0378; G8987; G8988; J7030

== ENCOUNTER → 2017-06-17 | Outpatient (CLI) | payer MEDICARE ==
[~2017-06-17] MED LIST changes: -AMLO2.5T PO; +CARV6.25 PO; -CLOP75TA PO; +GABA300C5 PO; +ISOS30TA3 PO; +WARF-58 PO
[2017-06-17 08:45] LABS: CALCIUM 8.6 MG/DL (8.5-10.1)
[2017-06-17 08:46] LABS: BICARBONATE 25.2 MEQ/L (21.0-32.0)
[2017-06-17 08:49] LABS: CREATININE 2.2 MG/DL (0.60-1.30)
== END ==
LOC: PLAB 06:48
PROVIDERS: ATTEND Internal Medicine Cardiovascular Disease
DX: I42.9 Cardiomyopathy, unspecified (principal); I34.0 Nonrheumatic mitral (valve) insufficiency; I12.9 Hypertensive chronic kidney disease with stage 1 through stage 4 chronic kidney disease, or unspecified chronic kidney disease; N18.9 Chronic kidney disease, unspecified
CPT/HCPCS: 36415; 80048

== ENCOUNTER → 2017-06-20 | Outpatient (CLI) | payer MEDICARE ==
[2017-06-20 08:55] LABS: CALCIUM 8.8 MG/DL (8.5-10.1)
[2017-06-20 08:56] LABS: BICARBONATE 24.9 MEQ/L (21.0-32.0)
[2017-06-20 08:59] LABS: CREATININE 2.4 MG/DL (0.60-1.30)
== END ==
LOC: PLAB 06:39
PROVIDERS: ATTEND Internal Medicine Cardiovascular Disease
DX: I42.9 Cardiomyopathy, unspecified (principal); N18.9 Chronic kidney disease, unspecified; I34.0 Nonrheumatic mitral (valve) insufficiency; I25.10 Atherosclerotic heart disease of native coronary artery without angina pectoris; I48.91 Unspecified atrial fibrillation
CPT/HCPCS: 36415; 80048

== ENCOUNTER → 2017-06-24 | Outpatient (CLI) | payer MEDICARE ==
[2017-06-24 09:22] LABS: AUTOMATED NEUTROPHIL # 5.4 TH/MM3 (1.8-7.7); BASOPHIL # 0.1 TH/MM3 (0-0.2); EOSINOPHIL # 0.5 TH/MM3 (0-0.4); EOSINOPHIL % 6.4 % (0.0-4.0); HEMATOCRIT 38.6 % (39.0-51.0); HEMOGLOBIN 12.2 GM/DL (13.0-17.0); LYMPH % 12.1 % (9.0-44.0); LYMPHOCYTE # 0.9 TH/MM3 (1.0-4.8); MEAN CELL VOLUME 78.2 FL (80.0-100.0); MEAN CORPUSCULAR HEMOGLOBIN 24.7 PG (27.0-34.0); MEAN CORPUSCULAR HGB CONC 31.6 % (32.0-36.0); MEAN PLATELET VOLUME 8.3 FL (7.0-11.0); MONO % 7.1 % (0.0-8.0); MONOCYTE # 0.5 TH/MM3 (0-0.9); NEUT % 73.4 % (16.0-70.0); PLATELET COUNT 272 TH/MM3 (150-450); RED BLOOD COUNT 4.93 MIL/MM3 (4.50-5.90); RED CELL DISTRIBUTION WIDTH 22.7 % (11.6-17.2); WHITE BLOOD COUNT 7.3 TH/MM3 (4.0-11.0)
[2017-06-24 09:50] LABS: BILIRUBIN, URINE NEG (NEG); BLOOD, URINE NEG (NEG); GLUCOSE,URINE NEG (NEG); HYALINE CAST, URINE 1 /lpf (RARE); KETONE, URINE NEG (NEG); NITRITE,URINE NEG (NEG); SQUAMOUS EPITHELIAL CELL URINE <1 /hpf (0-5); URINE COLOR YELLOW (YELLW/STRAW); URINE LEUKOCYTE ESTERASE NEG (NEG)
[2017-06-24 09:51] LABS: % SATURATION IRON PROFILE 39.4 % (20-50); ALBUMIN 2.9 GM/DL (3.4-5.0); BICARBONATE 22.5 MEQ/L (21.0-32.0); BLOOD UREA NITROGEN 52 MG/DL (7-18); CALCIUM 8.9 MG/DL (8.5-10.1); CHLORIDE 109 MEQ/L (98-107); CREATININE 2.26 MG/DL (0.60-1.30); FERRITIN 29 NG/ML (26-388); GLOMERULAR FILTRATION RATE 28 ML/MIN (>89); GLUCOSE,RANDOM 108 MG/DL (74-106); IRON (FE) 148 MCG/DL (65-175); PHOSPHORUS 3.9 MG/DL (2.5-4.9); SODIUM (NA) 139 MEQ/L (136-145); TOTAL IRON BINDING CAPACITY 375 MCG/DL (250-450)
[2017-06-24 11:01] LABS: IMMUNOGLOBULIN A 177 MG/DL (133-294); IMMUNOGLOBULIN G 1100 MG/DL (739-1450); IMMUNOGLOBULIN M 75 MG/DL (64-198); KAPPA LAMBDA RATIO 2.21 (1.57-3.93); KAPPA LIGHT CHAIN 274 MG/DL (591-1276); LAMBDA LIGHT CHAIN 124 MG/DL (237-761)
[2017-06-24 21:52] LABS: ALB/GLOB RATIO (SPE) 1.16 (1.39-2.23)
[2017-06-28 03:50] LABS: KAPPA/LAMBDA FREE 1.87 (0.26-1.65)
== END ==
LOC: PLAB 06:36
PROVIDERS: ATTEND Internal Medicine Nephrology
DX: R80.9 Proteinuria, unspecified (principal); N18.3 Chronic kidney disease, stage 3 (moderate); D63.1 Anemia in chronic kidney disease
CPT/HCPCS: 36415; 80069; 81001; 82570; 82728; 82784; 83540; 83550; 83883; 83970; 84156; 84165; 85025; 86334; 86335

== ENCOUNTER → 2017-07-04 | Outpatient (CLI) | payer MEDICARE ==
[2017-07-04 10:27] LABS: ALBUMIN 2.8 GM/DL (3.4-5.0); BICARBONATE 24.9 MEQ/L (21.0-32.0); CREATININE 2.11 MG/DL (0.60-1.30)
[2017-07-04 10:29] LABS: PHOSPHORUS 3.3 MG/DL (2.5-4.9)
== END ==
LOC: PLAB 06:38
PROVIDERS: ATTEND Internal Medicine Nephrology
DX: R80.9 Proteinuria, unspecified (principal)
CPT/HCPCS: 36415; 80069

== ENCOUNTER → 2017-07-11 | Outpatient (CLI) | payer MEDICARE ==
[2017-07-11 10:37] LABS: ALBUMIN 2.9 GM/DL (3.4-5.0); BICARBONATE 22.2 MEQ/L (21.0-32.0); CREATININE 2.23 MG/DL (0.60-1.30)
[2017-07-11 10:42] LABS: PHOSPHORUS 3.6 MG/DL (2.5-4.9)
== END ==
LOC: PLAB 06:51
PROVIDERS: ATTEND Internal Medicine Nephrology
DX: E87.5 Hyperkalemia (principal); N18.3 Chronic kidney disease, stage 3 (moderate)
CPT/HCPCS: 36415; 80069

== ENCOUNTER → 2017-07-18 | Outpatient (CLI) | payer MEDICARE ==
[2017-07-18 10:15] LABS: AUTOMATED NEUTROPHIL # 4.8 TH/MM3 (1.8-7.7); BASOPHIL # 0.1 TH/MM3 (0-0.2); EOSINOPHIL # 0.5 TH/MM3 (0-0.4); EOSINOPHIL % 7.5 % (0.0-4.0); HEMATOCRIT 38.4 % (39.0-51.0); HEMOGLOBIN 12.4 GM/DL (13.0-17.0); LYMPH % 11.4 % (9.0-44.0); LYMPHOCYTE # 0.8 TH/MM3 (1.0-4.8); MEAN CELL VOLUME 79.6 FL (80.0-100.0); MEAN CORPUSCULAR HEMOGLOBIN 25.7 PG (27.0-34.0); MEAN CORPUSCULAR HGB CONC 32.4 % (32.0-36.0); MEAN PLATELET VOLUME 8.1 FL (7.0-11.0); MONO % 8.3 % (0.0-8.0); MONOCYTE # 0.6 TH/MM3 (0-0.9); NEUT % 71.8 % (16.0-70.0); PLATELET COUNT 239 TH/MM3 (150-450); RED BLOOD COUNT 4.82 MIL/MM3 (4.50-5.90); WHITE BLOOD COUNT 6.7 TH/MM3 (4.0-11.0)
[2017-07-18 10:18] LABS: BILIRUBIN, URINE NEG (NEG); BLOOD, URINE TRACE (NEG); GLUCOSE,URINE NEG (NEG); KETONE, URINE NEG (NEG); NITRITE,URINE NEG (NEG); URINE COLOR YELLOW (YELLW/STRAW); URINE LEUKOCYTE ESTERASE NEG (NEG)
[2017-07-18 10:31] LABS: ALBUMIN 2.8 GM/DL (3.4-5.0); BICARBONATE 24.5 MEQ/L (21.0-32.0); CALCIUM 8.3 MG/DL (8.5-10.1); CREATININE 2.04 MG/DL (0.60-1.30); PHOSPHORUS 3.3 MG/DL (2.5-4.9)
[2017-07-18 11:17] LABS: ACANTHOCYTES OCC (NORMAL)
== END ==
LOC: PLAB 06:39
PROVIDERS: ATTEND Internal Medicine Nephrology
DX: N18.4 Chronic kidney disease, stage 4 (severe) (principal); R80.9 Proteinuria, unspecified
CPT/HCPCS: 36415; 80069; 81001; 82570; 83970; 84156; 85025

== ENCOUNTER → 2017-09-03 | Outpatient (CLI) | payer MEDICARE ==
[2017-09-03 10:27] LABS: AUTOMATED NEUTROPHIL # 4.3 TH/MM3 (1.8-7.7); BASOPHIL # 0.1 TH/MM3 (0-0.2); BASOPHIL % 1.5 % (0.0-2.0); EOSINOPHIL # 0.6 TH/MM3 (0-0.4); EOSINOPHIL % 9.2 % (0.0-4.0); HEMATOCRIT 42.2 % (39.0-51.0); HEMOGLOBIN 13.8 GM/DL (13.0-17.0); LYMPHOCYTE # 0.7 TH/MM3 (1.0-4.8); MEAN CELL VOLUME 85.3 FL (80.0-100.0); MEAN CORPUSCULAR HEMOGLOBIN 27.9 PG (27.0-34.0); MEAN CORPUSCULAR HGB CONC 32.7 % (32.0-36.0); MEAN PLATELET VOLUME 8.2 FL (7.0-11.0); MONO % 8.3 % (0.0-8.0); MONOCYTE # 0.5 TH/MM3 (0-0.9); PLATELET COUNT 213 TH/MM3 (150-450); RED BLOOD COUNT 4.95 MIL/MM3 (4.50-5.90); RED CELL DISTRIBUTION WIDTH 17.8 % (11.6-17.2); WHITE BLOOD COUNT 6.2 TH/MM3 (4.0-11.0)
[2017-09-03 10:55] LABS: ALBUMIN 2.8 GM/DL (3.4-5.0); AST (GOT) 19 U/L (15-37); BICARBONATE 22.7 MEQ/L (21.0-32.0); BLOOD UREA NITROGEN 42 MG/DL (7-18); CALCIUM 8.6 MG/DL (8.5-10.1); CHLORIDE 109 MEQ/L (98-107); CREATININE 2.47 MG/DL (0.60-1.30); GLOMERULAR FILTRATION RATE 25 ML/MIN (>89); GLUCOSE,FASTING 84 MG/DL (74-99); SODIUM (NA) 141 MEQ/L (136-145)
[2017-09-03 10:56] LABS: CHOLESTEROL 126 MG/DL (120-200)
[2017-09-03 11:08] LABS: ALKALINE PHOSPHATASE 111 U/L (45-117); ALT (GPT) 16 U/L (12-78); CHOLESTEROL/ HDL RATIO 3.11 RATIO; HDL CHOLESTEROL 40.4 MG/DL (40.0-60.0); LDL CHOLESTEROL 63 MG/DL (0-99); TOTAL BILIRUBIN ADULT 0.6 MG/DL (0.2-1.0); TOTAL PROTEIN 6.4 GM/DL (6.4-8.2); TRIGLYCERIDES 115 MG/DL (42-150)
== END ==
LOC: PLAB 07:46
PROVIDERS: ATTEND Family Medicine
DX: E78.5 Hyperlipidemia, unspecified (principal); I12.9 Hypertensive chronic kidney disease with stage 1 through stage 4 chronic kidney disease, or unspecified chronic kidney disease; N18.3 Chronic kidney disease, stage 3 (moderate); R53.83 Other fatigue
CPT/HCPCS: 36415; 80053; 80061; 84443; 85025

== ENCOUNTER → 2017-09-04 | Outpatient (CLI) | payer MEDICARE | LOC: PLAB 09:48 | PROVIDERS: ATTEND Urology | DX: N40.1 Benign prostatic hyperplasia with lower urinary tract symptoms (principal) | CPT/HCPCS: 36415; 84153 ==

== ENCOUNTER → 2017-11-14 | Outpatient (CLI) | payer MEDICARE ==
[2017-11-14 10:07] LABS: BASOPHIL # 0.1 TH/MM3 (0-0.2); BASOPHIL % 1.7 % (0.0-2.0); EOSINOPHIL # 0.4 TH/MM3 (0-0.4); EOSINOPHIL % 6.8 % (0.0-4.0); HEMATOCRIT 46.6 % (39.0-51.0); HEMOGLOBIN 15.3 GM/DL (13.0-17.0); LYMPH % 13.3 % (9.0-44.0); LYMPHOCYTE # 0.8 TH/MM3 (1.0-4.8); MEAN CORPUSCULAR HEMOGLOBIN 28.9 PG (27.0-34.0); MEAN CORPUSCULAR HGB CONC 32.8 % (32.0-36.0); MEAN PLATELET VOLUME 8.3 FL (7.0-11.0); MONO % 9.2 % (0.0-8.0); MONOCYTE # 0.5 TH/MM3 (0-0.9); PLATELET COUNT 205 TH/MM3 (150-450); RED BLOOD COUNT 5.29 MIL/MM3 (4.50-5.90); RED CELL DISTRIBUTION WIDTH 14.9 % (11.6-17.2); WHITE BLOOD COUNT 5.8 TH/MM3 (4.0-11.0)
[2017-11-14 10:14] LABS: ALBUMIN 3.1 GM/DL (3.4-5.0); CREATININE 2.59 MG/DL (0.60-1.30)
[2017-11-14 10:15] LABS: PHOSPHORUS 3.9 MG/DL (2.5-4.9)
[2017-11-14 10:17] LABS: BILIRUBIN, URINE NEG (NEG); BLOOD, URINE NEG (NEG); GLUCOSE,URINE NEG (NEG); HYALINE CAST, URINE 3 /lpf (RARE); KETONE, URINE NEG (NEG); NITRITE,URINE NEG (NEG); SQUAMOUS EPITHELIAL CELL URINE <1 /hpf (0-5); URINE COLOR YELLOW (YELLW/STRAW); URINE LEUKOCYTE ESTERASE NEG (NEG)
== END ==
LOC: PLAB 06:40
PROVIDERS: ATTEND Internal Medicine Nephrology
DX: E55.9 Vitamin D deficiency, unspecified (principal); N18.4 Chronic kidney disease, stage 4 (severe); E21.1 Secondary hyperparathyroidism, not elsewhere classified
CPT/HCPCS: 36415; 80069; 81001; 82306; 82570; 83970; 84156; 85025